=== PATIENT | female | born 1960 | race Caucasian/White ===

== ENCOUNTER 2017-07-06 06:06 | Day surgery (SDC) | payer OTHER ==
[2017-07-05 09:37] VITALS: BMI 30.1
[~2017-07-06 06:06] MED LIST: BETAMET ACET/BETAMET NA PH 30 MG/5 ML VIAL IJ ONE; BUPIVACAINE HCL/PF 0.25% (2.5MG/ML) 10 ML VIAL IJ ONE; IOHEXOL 180 MG/1 ML ML IJ ONE
[2017-07-06] MEDS ORDERED: BETAMET ACET/BETAMET NA PH 30 MG/5 ML VIAL ONE (07:39)
[2017-07-06] MEDS ORDERED: BUPIVACAINE HCL/PF 0.25% (2.5MG/ML) 10 ML VIAL ONE (07:40)
[2017-07-06] MEDS ORDERED: LIDOCAINE HCL 1%, 10 MG/ML (20ML VIAL) ONE (07:40)
[2017-07-06] MEDS ORDERED: PROPOFOL 20 ML ONE (08:01)
[2017-07-06] MEDS ORDERED: MIDAZOLAM HCL 2 MG/2 ML SINGLE DOSE VIAL ONE (08:01)
[2017-07-06] MEDS ORDERED: LIDOCAINE HCL 1%, 10 MG/ML (20ML VIAL) INF ONE ×2 (09:03)
[2017-07-06] MEDS ORDERED: IOHEXOL 180 MG/1 ML ML IJ ONE (09:08)
[2017-07-06] MEDS ORDERED: BUPIVACAINE HCL/PF 0.25% (2.5MG/ML) 10 ML VIAL IJ ONE (09:08)
[2017-07-06] MEDS ORDERED: BETAMET ACET/BETAMET NA PH 30 MG/5 ML VIAL IJ ONE (09:08)
[2017-07-06] MEDS ORDERED: ceFAZolin SODIUM 1 GM VIAL ONE (10:28)
[2017-07-06] MEDS ORDERED: oxyCODONE HCL 5 MG TABLET ONE ×2 (10:29→10:52)
[2017-07-06] MEDS ORDERED: ACETAMINOPHEN 325 MG TABLET (FP) ONE ×2 (10:30→10:52)
[2017-07-06 12:25] VITALS: TEMP 97.8
[2017-07-06 13:04] VITALS: BP 130/70; PULSE 77
--- NOTE | 2017-07-06 14:27 | PROC ---
Procedure Note Procedure: Date of service: 07/06/2017 Preoperative Diagnosis: Low back pain and lumbar radiculopathy on right, s/p Back surgery Postoperative Diagnosis: Same Procedure Performed: Lumbar Epidural Steroid Injection (LESI) on Right L5-S1 with dye under Fluoroscopy Anesthesia: Local / MAC Anesthesiologist: Procedure: I discussed with the patient in detail about the risks, benefits, and alternatives to treatment not only limited to infection, headache, numbness , weakness, and injury to nerves, blood vessels and muscles. The patient understood, agreed and signed the written consent. The patient was placed in the prone position with the head, abdomen and legs supported with the pillows. The lumbosacral area was prepped and draped with Betadine times three in a sterile fashion. Lumbar vertebrae were identified under the C-arm. At L5-S1 level on the right side, 3 ml of 1 % Lidocaine was infiltrated into the skin and subcutaneous tissue. A 3 inch, #20 gauge Tuohy needle was advanced to the epidural space with loss of resistance technique under fluoroscopic guidance. Aspiration was negative for cerebrospinal fluid and blood. 2ml of Omnipaque ( radio-opaque dye) was injected to confirm the tip of the needle into epidural space and spread of dye. There was no CSF or vascular spread. The spread of dye was noted cranially and caudally on epidurogram. Aspiration was done again which was negative. A solution of 2.5 ml of Celestone and 2.5 ml of 0.25% Marcaine and a total of 5 ml was injected slowly. While Tuohy needle was withdrawn 2.0 ml of 1 % Lidocaine was infiltrated. Bleeding was checked. Betadine was wiped off. A sterile bandage was placed. The patient tolerated the procedure well. There were no immediate complications. The patient was transferred to the recovery room. The patient was observed for some time and discharged as per ASU criteria. The patient was told to apply ice at the injection site. Follow up appointment was given and also call my office at . If there is any problem, call my office or report to Emergency Room. Note: Initially, Caudal epidural with Touhey ( Epimed set was used ) was tried and failed then Interlaminar approach done. Braxton Dow M.D.
== END 2017-07-06 12:00 | disposition home or self-care (01) ==
LOC: JASU-SURG 06:06
PROVIDERS: ATTEND Physical Medicine & Rehabilitation
PROC: 3E0R33Z Introduction of Anti-inflammatory into Spinal Canal, Percutaneous Approach (ICD-10-PCS; 2017-07-06)
PROC: B01BYZZ Fluoroscopy of Spinal Cord using Other Contrast (ICD-10-PCS; 2017-07-06)
PROC: 3E0R3BZ Introduction of Anesthetic Agent into Spinal Canal, Percutaneous Approach (ICD-10-PCS; principal; 2017-07-06 10:30)
DX: M54.16 Radiculopathy, lumbar region (principal); M54.5 Low back pain
CPT/HCPCS: 76000-TC

== ENCOUNTER 2018-04-20 07:46 | Emergency (ER) | payer OTHER ==
[2018-04-20 07:55] VITALS: BP 123/75; PULSE 84; TEMP 98.2; BMI 29.2
[2018-04-20] MEDS ORDERED: diphenhydrAMINE HCL 25 MG CAPSULE (FP) PO ONE ×2 (09:05→09:08)
--- NOTE | 2018-04-20 09:15 | PDOC ---
History of Present Illness - General Chief Complaint: Pain, Acute Stated Complaint: Right Knee pain, sx in Feb, 2018 Time Seen by Provider: 04/20/18 08:23 History Source: Patient, Family Exam Limitations: Language Barrier - History of Present Illness Initial Comments: 04/20/18 09:04 Patient states postop knee replacement on the right knee February 18 by physician at [facility]. Since that time has never had relief of pain , and now is itching profusely. Continue swelling. States appointment with him is not until May but reports is very unhappy with his care and does not wish to see him again. Patient denies fever, drainage from the site. Is using ibuprofen and Tylenol with minimal resolved. Severity: reports: moderate Pain Location: reports: lower extremity (right knee ) Associated Symptoms (Fall): denies symptoms Past History - Past Medical History Allergies/Adverse Reactions: Allergies Allergy/AdvReac Type Severity Reaction Status Date / Time sulfamethoxazole Allergy Mild Itching Verified 04/20/18 07:55 [From Bactrim] trimethoprim [From Bactrim] Allergy Mild Itching Verified 04/20/18 07:55 Home Medications: Ambulatory Orders Fluticasone/Salmeterol [Advair Hfa 115-21 Mcg Inhaler] 1 inh PO BID #1 inhaler 04/19/15 Aspirin Coated [Ecotrin -] 81 mg PO DAILY 07/05/17 Diphenhydramine HCl [Benadryl -] 25 mg PO Q8H PRN #21 capsule 04/20/18 Naproxen [Naprosyn -] 500 mg PO BID #30 tablet 04/20/18 Anemia: No Asthma: Yes Cancer: No Cardiac Disorders: No CVA: No COPD: No CHF: No Dementia: No Diabetes: Yes (NIDDM) GI Disorders: Yes (ACID REFLUX) Disorders: No HTN: Yes Hypercholesterolemia: No Liver Disease: No Seizures: No Thyroid Disease: No - Surgical History Abdominal Surgery: Yes (HYSTERECTOMY) Appendectomy: No Cardiac Surgery: No Cholecystectomy: No Lung Surgery: No Neurologic Surgery: No Orthopedic Surgery: Yes (LAMINECTOMY, LT KNEE SURGERY FROM TORN MENISCUS) - Suicide/Smoking/Psychosocial Hx Smoking History: Never smoked Have you smoked in the past 12 months: No If you are a former smoker, when did you quit?: 40 Information on smoking cessation initiated: No Hx Alcohol Use: No Drug/Substance Use Hx: No Substance Use Type: None Review of Systems - Review of Systems Able to Perform ROS?: Yes Is the patient limited Grenadian proficient: Yes Constitutional: Yes: Symptoms Reported, See HPI, Chills HEENTM: Yes: See HPI. No: Symptoms Reported Musculoskeletal: Yes: Symptoms Reported, See HPI, Joint Pain, Joint Swelling, Joint Stiffness (right knee ) All Other Systems: Reviewed and Negative *Physical Exam - Vital Signs Last Vital Signs Temp Pulse Resp BP Pulse Ox 98.2 F 84 18 123/75 98 04/20/18 07:53 04/20/18 07:53 04/20/18 07:53 04/20/18 07:53 04/20/18 07:53 - Physical Exam General Appearance: Yes: Nourished, Appropriately Dressed, Apparent Distress, Moderate Distress HEENT: positive: KELLY, Normal ENT Inspection, TMs Normal, Pharynx Normal Neck: positive: Supple. negative: Tender Respiratory/Chest: positive: Lungs Clear Extremity: positive: Normal Capillary Refill, Swelling (with ROM ~ 50% with well approximated suture line however patient has maculopapular rash to the lateral aspect of right knee and suture line that is pruritic in nature.). 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, Fully Oriented, Alert, Normal Mood/ Affect, Normal Response, Motor Strength 5/5 *DC/Admit/Observation/Transfer Diagnosis at time of Disposition: Post-op pain Allergic reaction Qualifiers: Encounter type: initial encounter Qualified Code(s): T78.40XA - Allergy, unspecified, initial encounter - Discharge Dispostion Disposition: HOME Condition at time of disposition: Stable Decision to Admit order: No - Referrals Referrals: Cassandra Campbell [Primary Care Provider] - Eric Harper MD [Staff Physician] - - Patient Instructions Printed Discharge Instructions: DI for Knee Pain Additional Instructions: Rest, ice to area on and off for 15 minutes 4-6 times a day Avoid heavy lifting or exercise until pain and swelling is resolved or until further directed Keep area highly elevated to reduce swelling Use splints/Hardeep wrap as directed Followup with orthopedist in one to 2 days if not improving, if significantly improved may wait one week for followup with orthopedist May use Naprosyn 1500 milligrams tablet every 12 hours as needed for pain - Post Discharge Activity Forms/Work/School Notes: Back to Work
== END 2018-04-20 09:22 | disposition home or self-care (01) ==
LOC: JERFT 07:46
DX: G89.18 Other acute postprocedural pain (principal); T78.40XA Allergy, unspecified, initial encounter; Z87.891 Personal history of nicotine dependence; I10 Essential (primary) hypertension; K21.9 Gastro-esophageal reflux disease without esophagitis
CPT/HCPCS: 99281-25

== ENCOUNTER 2018-08-02 07:19 | Day surgery (SDC) | payer OTHER ==
[2018-07-29 15:41] VITALS: BMI 28.3
[~2018-08-02 07:19] MED LIST changes: +LIDOCAINE HCL 1%, 10 MG/ML (50 mL VIAL) IJ ONE
[2018-08-02] MEDS ORDERED: BUPIVACAINE HCL/PF 0.25% (2.5MG/ML) 10 ML VIAL ONE (08:00)
[2018-08-02] MEDS ORDERED: LIDOCAINE HCL 1%, 10 MG/ML (20ML VIAL) ONE (08:00)
[2018-08-02] MEDS ORDERED: BETAMET ACET/BETAMET NA PH 30 MG/5 ML VIAL ONE (08:00)
[2018-08-02] MEDS ORDERED: PROPOFOL 20 ML ONE (09:17)
[2018-08-02] MEDS ORDERED: IOHEXOL 180 MG/1 ML ML IJ ONE (09:39)
[2018-08-02] MEDS ORDERED: LIDOCAINE HCL 1%, 10 MG/ML (50 mL VIAL) IJ ONE (09:39)
[2018-08-02] MEDS ORDERED: BETAMET ACET/BETAMET NA PH 30 MG/5 ML VIAL IJ ONE (09:39)
[2018-08-02] MEDS ORDERED: BUPIVACAINE HCL/PF 0.25% (2.5MG/ML) 10 ML VIAL IJ ONE (09:39)
[2018-08-02 12:05] VITALS: BP 114/69; PULSE 74; TEMP 97.6
== END 2018-08-02 12:05 | disposition home or self-care (01) ==
LOC: JASU-SURG 07:19
PROVIDERS: ATTEND Physical Medicine & Rehabilitation
PROC: 3E0T33Z Introduction of Anti-inflammatory into Peripheral Nerves and Plexi, Percutaneous Approach (ICD-10-PCS; 2018-08-02)
PROC: BR16YZZ Fluoroscopy of Lumbar Facet Joint(s) using Other Contrast (ICD-10-PCS; 2018-08-02)
PROC: 3E0R3BZ Introduction of Anesthetic Agent into Spinal Canal, Percutaneous Approach (ICD-10-PCS; 2018-08-02)
PROC: 3E0R33Z Introduction of Anti-inflammatory into Spinal Canal, Percutaneous Approach (ICD-10-PCS; 2018-08-02)
PROC: 3E0T3BZ Introduction of Anesthetic Agent into Peripheral Nerves and Plexi, Percutaneous Approach (ICD-10-PCS; principal; 2018-08-02 09:30)
DX: M46.86 Other specified inflammatory spondylopathies, lumbar region (principal); M53.3 Sacrococcygeal disorders, not elsewhere classified; M54.5 Low back pain; I10 Essential (primary) hypertension; E11.9 Type 2 diabetes mellitus without complications; Z79.84 Long term (current) use of oral hypoglycemic drugs
CPT/HCPCS: 82962

== ENCOUNTER 2018-09-16 09:38 | Day surgery (SDC) | payer OTHER ==
[2018-09-15 15:21] VITALS: BMI 29.2
[2018-09-16] MEDS ORDERED: PROPOFOL 20 ML ONE (12:21)
[2018-09-16] MEDS ORDERED: MIDAZOLAM HCL 2 MG/2 ML SINGLE DOSE VIAL ONE (12:21)
[2018-09-16] MEDS ORDERED: ONDANSETRON 4 MG/2 ML VIAL IVPUSH PRN (12:32)
[2018-09-16] MEDS ORDERED: oxyCODONE HCL 5 MG TABLET PO PRN (12:32)
[2018-09-16] MEDS ORDERED: ceFAZolin SODIUM 1 GM VIAL IVPB ONE (12:40)
[2018-09-16] MEDS ORDERED: ACETAMINOPHEN 325 MG TABLET (FP) PO PRN (12:41)
[2018-09-16] MEDS ORDERED: LACTATED RINGERS SOLUTION 1,000 ML IV SCH (12:45)
--- NOTE | 2018-09-16 13:22 | HP ---
DATE OF ADMISSION: 09/16/2018 HISTORY OF PRESENT ILLNESS: Patient is a 58-year-old female with history of urinary frequency, urgency, nocturia x3, and persistent microscopic hematuria. She has undergone back and knee surgery. She also does have history of diabetes, high blood pressure, COPD, and dyslipidemia. SOCIAL HISTORY: The patient denies ethanolism or tobacco. ALLERGIES: She is allergic to BACTRIM. 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 MEDICATIONS: She is on multiple medications including lisinopril, prednisone, aspirin, metformin, glyburide, Ambien, Ventolin, Symbicort, a PPI, and a statin. DIAGNOSTIC DATA: Her urine FISH was atypical. Her urinalysis reveals a moderate amount of red blood cells with no WBCs. Nitrate negative. An ultrasound of the kidneys reveals normal upper tract. Urinalysis was negative for glucose, trace ketones, specific gravity 1.030. Blood moderate pH 5.5. PHYSICAL EXAMINATION: General: Revealed a well-developed adult female in no apparent distress. Abdomen: Soft. There is no CVA tenderness. Lungs: Clear to auscultation and percussion. Heart: Regular rhythm. Pelvic: The bladder was not distended. Exam revealed atrophic vaginitis. No discharge and no masses. IMPRESSION AT PRESENT: A 58-year-old female with persistent microscopic hematuria. She will undergo cystoscopy, possible biopsy. ADEBAYO MUHAMMAD M.D. [id number]
--- NOTE | 2018-09-16 13:26 | OP ---
Operative Note - Note: Operative Date: 09/16/18 Pre-Operative Diagnosis: persistent microhematuria tashi, rec uti Operation: cysto, dilation, bladder bx. and fulgeration Findings: urethral stenosis, hemorrhagic cystitis Post-Operative Diagnosis: Same as Pre-op Surgeon: Marilee Rogers Anesthesia: General Specimens Removed: urine for c&s and cytology, bladder mucosa Estimated Blood Loss (mls): 0 Drains & Tubes with Location: 18f 10cc arias Drains, Volume Out (mls): 0 Blood Volume Replaced (mls): 0 Fluid Volume Replaced (mls): 0 Operative Report Dictated: Yes
[2018-09-16] MEDS ORDERED: KETOROLAC TROMETHAMINE 30 MG/1 ML VIAL ONE (13:56)
[2018-09-16] MEDS ORDERED: LORazepam 2 MG/ML SDV VIAL ONE (13:57)
[2018-09-16] MEDS ORDERED: ACETAMINOPHEN INJECTION 100 ML IVPB ONE (13:57)
[2018-09-16] MEDS ORDERED: LORazepam 2 MG/ML SDV VIAL IVPUSH ONE (13:59)
[2018-09-16] MEDS ORDERED: KETOROLAC TROMETHAMINE 30 MG/1 ML VIAL IVPUSH ONE (13:59)
[2018-09-16] MEDS ORDERED: ACETAMINOPHEN 1000 MG/100 ML VIAL (NON FORMULARY) IVPB ONE (14:02)
[2018-09-16 15:57] VITALS: TEMP 98
[2018-09-16 16:49] VITALS: BP 130/72; PULSE 76
--- NOTE | 2018-09-16 17:17 | OP ---
DATE OF OPERATION: 09/16/2018 PREOPERATIVE DIAGNOSIS: Micturition disorder, urinary incontinence, recurrent urinary tract infections, and persistent microscopic hematuria. POSTOPERATIVE DIAGNOSIS: Urethral caruncle meatal stenosis, grade 2 cystorectocele, atrophic vaginitis, hemorrhagic cystitis. OPERATIVE PROCEDURE: Cystourethroscopy, urethral dilation, bladder biopsy, and fulguration. ANESTHESIA: General. DESCRIPTION OF PROCEDURE: Under above-stated anesthesia, the patient was prepped and draped in the usual sterile manner. She was placed in the dorsal lithotomy position. Inspection of the external genitalia revealed a grade 2 cystorectocele. The meatus appeared to be dried and scarred with a prolapsed posterior urethral mucosa individual of a urethral caruncle. The scope was introduced. Urine was collected for cytology and culture and sensitivity. Inspection of the bladder revealed a generalized hyperemia. There were areas of punctate hemorrhages in the right lateral wall and trigone area. Therefore, biopsies were taken of the right lateral wall as well as the trigone. A Bugbee was introduced and hemostasis was secured with electrocautery. No active bleeding was noted. The bladder was emptied. The scope was removed. An 18-Filipino Galloway was inserted. This was connected to a leg bag. The patient tolerated the procedure well. She returned to the recovery room in good condition. Karine [id number]
--- NOTE | 2018-09-20 16:13 | PATH ---
Cytology Non-Gynecological Report Patient Name: ROBEL DOMINGO [facility] [place]. Rec. #: [id number] /Age/Gender: 1960 (Age: 58) / F Account: [id number] Location: [facility] Taken: 09/16/2018 Received: 09/16/2018 Reported: 09/20/2018 Physicians: Marilee Rogers M.D. Specimen(s) Received URINE VOIDED Clinical History Hematuria Final Diagnosis URINE FOR CYTOLOGY: SATISFACTORY FOR EVALUATION. NEGATIVE FOR HIGH GRADE UROTHELIAL CARCINOMA. FEW BENIGN UROTHELIAL CELLS PRESENT. Also see concurrent pathology report [id number]. Electronically Signed Tiffanie Steward M.D. Gross Description Approximately 40cc of yellow fluid received fresh. One sldie prepared.
--- NOTE | 2018-09-20 16:21 | PATH ---
Surgical Pathology Report Patient Name: ROBEL DOMINGO [facility]. Rec. #: [id number] /Age/Gender: 1960 (Age: 58) / F Account: [id number] Location: [facility] SUR[facility] Taken: 09/16/2018 Received: 09/19/2018 Reported: 09/20/2018 Physicians: Marilee Rogers M.D. Specimen(s) Received A: BLADDER BIOPSY B: BLADDER NECK BIOPSY Clinical History Interstitial cystitis, hematuria Final Diagnosis A. BLADDER BIOPSY: UROTHELIAL MUCOSA WITH MILD NONSPECIFIC CHRONIC INFLAMMATION. PORTION OF MUSCULARIS PROPRIA PRESENT, UNREMARKABLE. NEGATIVE FOR CARCINOMA. B. BLADDER NECK BIOPSY: UROTHELIAL MUCOSA WITH MILD NONSPECIFIC CHRONIC INFLAMMATION. NEGATIVE FOR CARCINOMA. Electronically Signed Tiffanie Steward M.D. Gross Description A. Received in formalin labeled "bladder biopsy," are 2 huizar soft tissue fragments measuring 0.3 and 0.5 cm in greatest dimension. The specimens are submitted in toto in one cassette. B. Received in formalin labeled "bladder neck biopsy," is a 0.3 cm greatest dimension huizar portion of soft tissue. The specimen is submitted in toto in one cassette. DL/09/19/2018 saudi09/19/2018
== END 2018-09-16 16:40 | disposition home or self-care (01) ==
LOC: JASU-SURG 09:38
PROVIDERS: ATTEND Urology
PROC: 0TBB8ZX Excision of Bladder, Via Natural or Artificial Opening Endoscopic, Diagnostic (ICD-10-PCS; principal; 2018-09-16 11:30)
DX: N30.81 Other cystitis with hematuria (principal); N36.2 Urethral caruncle; N81.10 Cystocele, unspecified; N81.6 Rectocele; N95.2 Postmenopausal atrophic vaginitis; N32.89 Other specified disorders of bladder
CPT/HCPCS: 82962; 87086; 88108; 88305-TC; 94760; J0131

== ENCOUNTER 2018-10-25 08:51 | Day surgery (SDC) | payer OTHER ==
[2018-10-24 15:26] VITALS: BMI 32.7
[2018-10-25] MEDS ORDERED: oxyCODONE HCL 5 MG TABLET PO PRN ×2 (10:12)
[2018-10-25] MEDS ORDERED: PROPOFOL 20 ML ONE (11:32)
[2018-10-25] MEDS ORDERED: LIDOCAINE HCL 1%, 10 MG/ML (20ML VIAL) INF ONE (11:39)
[2018-10-25] MEDS ORDERED: IOHEXOL 180 MG/1 ML ML IJ ONE (11:40)
[2018-10-25] MEDS ORDERED: BUPIVACAINE HCL/PF 0.25% (2.5MG/ML) 10 ML VIAL IJ ONE (11:43)
[2018-10-25] MEDS ORDERED: BETAMET ACET/BETAMET NA PH 30 MG/5 ML VIAL IM ONE (11:43)
[2018-10-25] MEDS ORDERED: KETOROLAC TROMETHAMINE 30 MG/1 ML VIAL ONE (11:56)
[2018-10-25 12:53] VITALS: BP 126/62; PULSE 68; TEMP 98
[2018-10-25] MEDS ORDERED: KETOROLAC TROMETHAMINE 30 MG/1 ML VIAL IVPUSH ONE (13:30)
== END 2018-10-25 13:55 | disposition home or self-care (01) ==
LOC: JASU-SURG 08:51
PROVIDERS: ATTEND Physical Medicine & Rehabilitation
PROC: 3E0R33Z Introduction of Anti-inflammatory into Spinal Canal, Percutaneous Approach (ICD-10-PCS; 2018-10-25)
PROC: 3E0R3BZ Introduction of Anesthetic Agent into Spinal Canal, Percutaneous Approach (ICD-10-PCS; principal; 2018-10-25 11:00)
DX: M54.16 Radiculopathy, lumbar region (principal); M54.5 Low back pain
CPT/HCPCS: 76000-TC-FY; 82962; 94760

== ENCOUNTER 2019-05-10 12:08 | Emergency (ER) | payer OTHER ==
[2019-05-10 12:17] VITALS: TEMP 98.1; BMI 32.0
--- NOTE | 2019-05-10 12:56 | PDOC ---
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 Pt was recently discharged from [facility] 04/24 for asthma exacerbation and has been on 40 mg PO prednisone (pt has been taking 20 mg PO, and not taking her albuterol MDI as directed). Pt states she has not felt better since her discharge on 04/24, but that her breathing was worse today. Pt denies any fevers/chills, headache, vision changes, syncope, chest pain, palpitations, cough, nausea/vomiting, abdominal pain, urinary symptoms, diarrhea /constipation, or leg swelling. Allergies: NKDA Pulm: Dr. Colon Social: Pt denies any cigarette, alcohol, or drug use. Pt denies any recent travel or sick contacts. Surgical: no relevant history. Family: no relevant history. 05/10/19 17:11 Past History - Travel Traveled outside of the country in the last 30 days: No Close contact w/someone who was outside of country & ill: No - Past Medical History Allergies/Adverse Reactions: Allergies Allergy/AdvReac Type Severity Reaction Status Date / Time sulfamethoxazole Allergy Mild Itching Verified 05/10/19 12:17 [From Bactrim] trimethoprim [From Bactrim] Allergy Mild Itching Verified 05/10/19 12:17 cauliflower Allergy Verified 05/10/19 12:17 Home Medications: Ambulatory Orders Aspirin Coated [Ecotrin -] 81 mg PO DAILY 07/05/17 Metformin HCl [Glucophage] 500 mg PO BID 08/02/18 Albuterol Sulfate Inhaler - [Ventolin Hfa Inhaler -] 1 - 2 inh PO QID 09/16/18 Glyburide 5 mg PO DAILY 09/16/18 Ibuprofen 800 mg PO PRN 09/16/18 Lisinopril [Zestril] 2.5 mg PO DAILY 09/16/18 Pantoprazole Sodium 40 mg PO DAILY 09/16/18 Zolpidem Tartrate 10 mg PO HS 09/16/18 predniSONE [Deltasone -] 40 mg PO UTDICT 8 Days #10 tablet 05/10/19 Anemia: No Asthma: Yes ("1 month ago"-went to ER,admitted for 3 days) Cancer: No Cardiac Disorders: No CVA: No COPD: No CHF: No Dementia: No Diabetes: Yes (NIDDM) GI Disorders: Yes (ACID REFLUX) Disorders: No HTN: Yes Hypercholesterolemia: No Liver Disease: No Seizures: No Thyroid Disease: No - Surgical History Abdominal Surgery: No Appendectomy: No Cardiac Surgery: No Cholecystectomy: No Lung Surgery: No Neurologic Surgery: No Orthopedic Surgery: Yes (LAMINECTOMY, LT KNEE SURGERY FROM TORN MENISCUS) - Psycho Social/Smoking Cessation Hx Smoking History: Never smoked Have you smoked in the past 12 months: No If you are a former smoker, when did you quit?: 40 Information on smoking cessation initiated: No Hx Alcohol Use: No Drug/Substance Use Hx: No Substance Use Type: None Hx Substance Use Treatment: No Respiratory Specific PMHX - Complaint Specific PMHX Hx Airway Support: No Hx Intubation: No Hx Asthma: Yes Hx Smoking Exposure: No Hx Vaping: No Hx Allergic Rhinitis: No Hx Exposure to Respiratory Irritants: No Hx Bronchitis: Yes Hx Pneumonia: No Hx Pulmonary Embolus: No Hx TB (Tuberculosis): No Review of Systems - Review of Systems Able to Perform ROS?: Yes (poor historian) Is the patient limited Armenian proficient: Yes Constitutional: Yes: Weight Stable. No: Chills, Fever, Loss of Appetite, Malaise, Weakness HEENTM: No: Recent change in vision, Nose Congestion, Throat Pain, Throat Swelling, Difficulty Swallowing Respiratory: Yes: Shortness of Breath, SOB with Exertion, SOB at Rest. No: Cough, Orthopnea, Wheezing, Productive cough, Hemoptysis Cardiac (ROS): Yes: Chest Tightness. No: Chest Pain, Edema, Irregular Heart Rate, Lightheadedness, Palpitations, Syncope ABD/GI: No: Constipated, Diarrhea, Nausea, Poor Appetite, Poor Fluid Intake, Vomiting : No: Burning, Dysuria, Frequency, Flank Pain, Hematuria, Pain, Urgency Musculoskeletal: No: Back Pain, Muscle Weakness Integumentary: No: Rash Neurological: No: Headache, Numbness, Weakness, Unsteady Gait, Dizziness Psychiatric: No: Sleep Pattern Change, Change in Appetite Endocrine: No: Increased Urine, Change in Weight Hematologic/Lymphatic: No: Anemia, Blood Clots, Easy Bleeding, Easy Bruising All Other Systems: Reviewed and Negative *Physical Exam - Vital Signs Last Vital Signs Temp Pulse Resp BP Pulse Ox 98.1 F 99 H 19 117/69 96 05/10/19 12:14 05/10/19 12:14 05/10/19 12:14 05/10/19 12:14 05/10/19 12:14 - Physical Exam Comments: Vitals stable, pt afebrile, O2 sat 100% on RA on my exam. Pt in NAD, obese body habitus. Speaking in full sentences and eating a bag of chips when I entered the room. Pt alert and oriented x3. account specialist generally intact, muscular strength and sensation intact. No midline spinal tenderness, step-offs, or crepitus. Head normocephalic, atraumatic. Eyes PERRLA, EOMI. Oropharynx without erythema or exudates, no LAD b/l. No nasal congestion. Hearing intact. Clear heart sounds, S1/S2, no JVD, b/l pedal edema, or heart murmur. Clear lung sounds, with mild end-expiratory wheezing. No abdominal or CVA tenderness to palpation, no rebound, no guarding. Abdomen soft, non-distended, and with normoactive bowel sounds. Skin without jaundice or rash. 05/10/19 17:17 ED Treatment Course - LABORATORY CBC & Chemistry Diagram: 05/10/19 13:22 05/10/19 13:21 Medical Decision Making - Medical Decision Making Pt was seen at bedside, also will be seen by attending Dr. Nickerson. Pt presenting with SOB from baseline, despite being on PO steroids. Discussed proper usage of home asthma medications with the patient. Will evaluate for asthma exacerbation vs overlying pneumonia vs ACS. Provided duoneb x3, 1 mg Mg, additional 20 mg PO prednisone for improvement of dyspnea and wheezing. Will continue to reassess pt and monitor for symptomatic improvement. ECG: Sinus tachycardia, atrial enlargement (Hr 103, CA 128, QRS 76, QTc 442). No TWIs or significant ST segment changes. No prior ECG for comparison. 05/10/19 17:19 CBC, CMP, Mg WNL Trop <.02 Chest x-ray with no acute pathology/consolidation Pt improved with interventions, ambulatory and speaking without SOB. No further wheezing auscultated. Spoke with Dr. Colon, who agrees with plan for d/c to home if clinically improved. Pts Peak Flow today was 275, he stated was consistent with pts prior. Provided peak flow to go home with. Increased steroid taper to 40 mg PO and decreasing by 10 mg every 3rd day. 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 Strict return precautions provided with pt understanding. 05/10/19 17:22 Discharge - Discharge Information Problems reviewed: Yes Clinical Impression/Diagnosis: Asthma Qualifiers: Asthma severity: moderate Asthma persistence: persistent Asthma complication type: with acute exacerbation Qualified Code(s): J45.41 - Moderate persistent asthma with (acute) exacerbation Condition: Improved Disposition: HOME - Admission No - Additional Discharge Information Prescriptions: predniSONE [Deltasone -] 40 mg PO UTDICT 8 Days #10 tablet - Follow up/Referral Referrals: Mayo Colon MD [Primary Care Provider] - - Patient Discharge Instructions Patient Printed Discharge Instructions: DI for Asthma -- Adult Additional Instructions: You were seen in the ER today for shortness of breath. The results of your labs and imaging today were normal. Please follow-up with your primary care doctor and Dr. Colon on Wednesday to discuss your visit and make sure your symptoms have improved. Please return to the ER if you have any worsening pain, development of fevers or chills, loss of consciousness, inability to tolerate food or fluids, or any other concerns. I have sent medications to your pharmacy. We have increased the amount of your prednisone steroid. Please take these medications as prescribed. Please take your inhalers as we discussed. You can take 1-2 pumps of your albuterol inhaler every 4 hours as needed. Your peak flow meter today was 275 -- please use this over the next couple of days to monitor your progress. - Post Discharge Activity
[2019-05-10] MEDS ORDERED: ALBUTEROL SO4 2.5/IPRATROPIUM 0.5 INH SOL 3 ML VIAL.NEB. NEB ONE (13:30)
[2019-05-10] MEDS ORDERED: MAGNESIUM 1GM/D5W - 1 GM/100 ML IVPB IVPB ONE (13:30)
[2019-05-10] MEDS: ALBUTEROL SO4 2.5/IPRATROPIUM 0.5 INH SOL 3 ML VIAL.NEB. NEB SCH ×3 (13:52→14:38)
[2019-05-10 13:55] LABS: VENOUS PC02 48.6 mmHg (38-52); VENOUS PH 7.39 (7.31-7.41)
[2019-05-10 13:59] LABS: VENOUS PO2 < 49 mmHg (28-48)
[2019-05-10 14:00] LABS: BASO % 0.7 % (0-2.0); EOS % 1.3 % (0-4.5); HEMATOCRIT 40.2 % (32.4-45.2); HEMOGLOBIN 13.2 GM/dL (10.7-15.3); LYMPH % 25.4 % (8-40); MCH 27.8 pg (25.7-33.7); MCHC 32.8 g/dl (32.0-36.0); MEAN CELL VOLUME 84.8 fl (80-96); MEAN PLT VOLUME 8.8 fl (7.5-11.1); MONO % 5.5 % (3.8-10.2); NEUT % 67.1 % (42.8-82.8); PLATELET COUNT 306 K/MM3 (134-434); RBC 4.74 M/mm3 (3.60-5.2); WHITE BLOOD COUNT 10.6 K/mm3 (4.0-10.0)
[2019-05-10 14:31] LABS: ALBUMIN 3.6 g/dl (3.4-5.0); BILIRUBIN,TOTAL 0.5 mg/dL (0.2-1); BLOOD UREA NITROGEN 11.7 mg/dL (7-18); CALCIUM 9.1 mg/dL (8.5-10.1); CREATININE 0.6 mg/dL (0.55-1.3); MAGNESIUM 2.1 mg/dL (1.8-2.4); POTASSIUM 4.5 mmol/L (3.5-5.1); TOT PROT 6.7 g/dl (6.4-8.2)
--- NOTE | 2019-05-10 14:54 | EKG ---
Test Reason : Blood Pressure : / mmHG Vent. Rate : 103 BPM Atrial Rate : 103 BPM P-R Int : 128 ms QRS Dur : 076 ms QT Int : 338 ms P-R-T Axes : 056 005 055 degrees QTc Int : 442 ms SINUS TACHYCARDIA POSSIBLE LEFT ATRIAL ENLARGEMENT BORDERLINE ECG NO PREVIOUS ECGS AVAILABLE Confirmed by RANULFO LAMA, DENILSON ([id number]) on 05/10/2019 2:54:27 PM Referred By: Confirmed By:DENILSON WINCHESTER MD
[2019-05-10 15:15] LABS: ARTERIAL BLD GAS O2 SATURATION 97.7 % (95-98); ARTERIAL BLOOD GAS BASE EXCESS -0.3 meq/l (-2-2); ARTERIAL BLOOD GAS PCO2 33.7 mmHg (35-45); ARTERIAL BLOOD GAS PO2 96.4 mmHg (80-100); ARTERIAL BLOOD GAS pH 7.45 (7.35-7.45); CARBOXYHEMOGLOBIN 1.3 % (0-2)
[2019-05-10 15:18] LABS: ALLENS TEST POSITIVE
[2019-05-10] MEDS ORDERED: predniSONE 20 MG TABLET (UD) PO ONE (15:46)
--- NOTE | 2019-05-10 15:48 | PDOC ---
Attending Attestation - Resident Resident Name: PerlitaMichelle - ED Attending Attestation I have performed the following: I have examined & evaluated the patient, The case was reviewed & discussed with the resident, I agree w/resident's findings & plan, Exceptions are as noted - HPI HPI: 05/10/19 15:42 59-year-old female history of diabetes asthma hypertension hyperlipidemia here today complaining of worsening shortness of breath. 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 Patient states she often needs her inhaler as often as every 20 minutes was not getting much relief. Denies any fevers or chills no chest pain no other current complaints. Transfer text - Physicial Exam PE: 05/10/19 15:43 Awake alert no acute distress on my exam the patient is lungs are clear post nebulizers no wheezing no crackles normal effort. Heart is regular tachycardia no murmurs rubs or gallops abdomen is soft and nontender extremities are warm well perfused no edema noted skin is warm and dry no rash patient is awake alert and oriented x3 - Medical Decision Making 05/10/19 15:49 59-year-old female history of hypertension diabetes hyperlipidemia asthma here with what appears to be asthma exacerbation already on steroids. Patient was given DuoNeb's here given additional dose of steroids per signout from Dr. Colon the patient was supposed to be taking 40 mg daily however the patient states she is taking a 20 mg tab and only taking it 1 tab once daily. Evaluated patient using her inhaler and it appears that she was using it incorrectly was educated in the proper way to use her inhaler pump. States that she also has a nebulizer machine at home was instructed that she should use it if she feels she is not getting relief from her pump. Peak flow monitor was obtained showing a peak flow of 275. Per Dr. Clark this is near her baseline overall the patient was offered admission would like to go home as tomorrow is a holiday was encouraged to return to the ED for repeat evaluation should she be requiring her inhaler more than every 4 hours has any worsening of symptoms or any concerns discharge with peak meter and told to use it as a guide while at home Heart Score/ECG Review #1 General ECG Interpretation: Sinus Rhythm, Normal Rate (103), Normal Intervals, No acute ischemic changes
[2019-05-10 16:10] VITALS: BP 120/58; PULSE 82
== END 2019-05-10 16:10 | disposition home or self-care (01) ==
LOC: JER 12:08
PROC: 3E0F7GC Introduction of Other Therapeutic Substance into Respiratory Tract, Via Natural or Artificial Opening (ICD-10-PCS; principal; 2019-05-10)
PROC: 3E033GC Introduction of Other Therapeutic Substance into Peripheral Vein, Percutaneous Approach (ICD-10-PCS; 2019-05-10)
DX: J45.41 Moderate persistent asthma with (acute) exacerbation (principal); Z88.8 Allergy status to other drugs, medicaments and biological substances; Z91.018 Allergy to other foods; Z87.891 Personal history of nicotine dependence; K21.9 Gastro-esophageal reflux disease without esophagitis; E11.9 Type 2 diabetes mellitus without complications; I10 Essential (primary) hypertension
CPT/HCPCS: 36415; 36600; 71045-TC-FY; 80053; 82375; 82803; 83050; 83735; 84484; 85025; 93005; 93010; 99284-25

== ENCOUNTER 2019-05-31 09:02 | Inpatient (IN) | payer OTHER ==
[2019-05-31 09:25] VITALS: BMI 31.5
[2019-05-31] MEDS ORDERED: methylPREDNISolone NA SUCC 125 MG/2 ML VIAL IVPB ONE (09:55)
[2019-05-31] MEDS ORDERED: ALBUTEROL SO4 2.5/IPRATROPIUM 0.5 INH SOL 3 ML VIAL.NEB. NEB ONE ×3 (09:55→16:16)
[2019-05-31] MEDS ORDERED: methylPREDNISolone NA SUCC 125 MG/2 ML VIAL ONE ×2 (09:56→16:16)
[2019-05-31 10:12] LABS: BASO % 0.6 % (0-2.0); EOS % 2.7 % (0-4.5); HEMATOCRIT 40.1 % (32.4-45.2); HEMOGLOBIN 13.2 GM/dL (10.7-15.3); LYMPH % 15.5 % (8-40); MCH 28.2 pg (25.7-33.7); MCHC 32.9 g/dl (32.0-36.0); MEAN CELL VOLUME 85.6 fl (80-96); MEAN PLT VOLUME 10.1 fl (7.5-11.1); MONO % 6.1 % (3.8-10.2); NEUT % 75.1 % (42.8-82.8); PLATELET COUNT 306 K/MM3 (134-434); RBC 4.68 M/mm3 (3.60-5.2); WHITE BLOOD COUNT 9.5 K/mm3 (4.0-10.0)
[2019-05-31 10:54] LABS: ALBUMIN 3.6 g/dl (3.4-5.0); BILIRUBIN,TOTAL 0.3 mg/dL (0.2-1); BLOOD UREA NITROGEN 16.1 mg/dL (7-18); CALCIUM 8.8 mg/dL (8.5-10.1); CREATININE 0.9 mg/dL (0.55-1.3); POTASSIUM 4.1 mmol/L (3.5-5.1); TOT PROT 7.1 g/dl (6.4-8.2)
--- NOTE | 2019-05-31 12:38 | PDOC ---
Documentation entered by Evelin Bowles SCRIBE, acting as scribe for Jennifer Alatorre MD. Jennifer Alatorre MD: This documentation has been prepared by the Jelena posadas Xhesika, SCRIBE, under my direction and personally reviewed by me in its entirety. I confirm that the documentation accurately reflects all work, treatment, procedures, and medical decision making performed by me. History of Present Illness - General Chief Complaint: Asthma Stated Complaint: ASTHMA ATTACK Time Seen by Provider: 05/31/19 09:24 History Source: Patient Exam Limitations: No Limitations - History of Present Illness Initial Comments: 05/31/19 09:57 The patient is a 59 year old female with with PMH of asthma, NIDDM, HTN, HLD, urethral stenosis and cystitis, who presents to the ED via EMS from her 2 months of asthma attacks, palpitations and SOB. Pt was recently discharged from [facility] 04/24 for asthma exacerbation. Patient has been on 40 mg PO prednisone (pt has been taking 20 mg PO, finished yesterday), breathing machine 5x a day, albuterol sulfate and ventolin. Patient notes yesterday she felt like she had a fever and sore throat. Pt notes she sleeps elevated and her SOB is aggravated even when walking around her house. Pt denies any chills, headache, vision changes, syncope, chest pain, cough, nausea/vomiting, abdominal pain, urinary symptoms, diarrhea/constipation, or leg swelling. Allergies: Sulfamethoxazol, trimethroprim, cauliflower Surgical hx: b/l lense implants, b/l knee replacements, back surgery, arm tumor resection Past History - Past Medical History Allergies/Adverse Reactions: Allergies Allergy/AdvReac Type Severity Reaction Status Date / Time sulfamethoxazole Allergy Mild Itching Verified 05/10/19 12:17 [From Bactrim] trimethoprim [From Bactrim] Allergy Mild Itching Verified 05/10/19 12:17 cauliflower Allergy Verified 05/10/19 12:17 Home Medications: Ambulatory Orders Aspirin Coated [Ecotrin -] 81 mg PO DAILY 07/05/17 Metformin HCl [Glucophage] 500 mg PO BID 08/02/18 Albuterol Sulfate Inhaler - [Ventolin Hfa Inhaler -] 1 - 2 inh PO QID 09/16/18 Glyburide 5 mg PO DAILY 09/16/18 Ibuprofen 800 mg PO PRN 09/16/18 Lisinopril [Zestril] 2.5 mg PO DAILY 09/16/18 Pantoprazole Sodium 40 mg PO DAILY 09/16/18 Zolpidem Tartrate 10 mg PO HS 09/16/18 predniSONE [Deltasone -] 40 mg PO UTDICT 8 Days #10 tablet 05/10/19 Albuterol Sulfate [Proair Respiclick] 90 mcg IH DAILY 05/31/19 Anemia: No Asthma: Yes Cancer: No Cardiac Disorders: No CVA: No COPD: No CHF: No Dementia: No Diabetes: Yes (NIDDM) GI Disorders: Yes (ACID REFLUX) Disorders: No HTN: Yes Hypercholesterolemia: No Liver Disease: No Seizures: No Thyroid Disease: No - Surgical History Abdominal Surgery: No Appendectomy: No Cardiac Surgery: No Cholecystectomy: No Lung Surgery: No Neurologic Surgery: No Orthopedic Surgery: Yes (LAMINECTOMY, LT KNEE SURGERY FROM TORN MENISCUS) - Immunization History Immunization Up to Date: Yes - Psycho Social/Smoking Cessation Hx Smoking History: Never smoked Have you smoked in the past 12 months: No If you are a former smoker, when did you quit?: 40 Information on smoking cessation initiated: No Hx Alcohol Use: No Drug/Substance Use Hx: No Substance Use Type: None Hx Substance Use Treatment: No Review of Systems - Review of Systems Able to Perform ROS?: Yes Comments:: GENERAL/CONSTITUTIONAL: No fever or chills. No weakness. HEAD, EYES, EARS, NOSE AND THROAT: No change in vision. No ear pain or discharge. CARDIOVASCULAR: No chest pain.+ shortness of breath.+ palpitations RESPIRATORY: No cough, wheezing, or hemoptysis. +asthma attack GASTROINTESTINAL: No nausea, vomiting, diarrhea or constipation. GENITOURINARY: No dysuria, frequency, or change in urination. MUSCULOSKELETAL: No joint or muscle swelling or pain. No neck or back pain. SKIN: No rash NEUROLOGIC: No headache, vertigo, loss of consciousness, or change in strength/ sensation. ENDOCRINE: No increased thirst. No abnormal weight change. HEMATOLOGIC/LYMPHATIC: No anemia, easy bleeding, or history of blood clots. ALLERGIC/IMMUNOLOGIC: No hives or skin allergy. *Physical Exam - Vital Signs Last Vital Signs Temp Pulse Resp BP Pulse Ox 97.5 F L 120 H 14 135/87 100 05/31/19 09:23 05/31/19 09:23 05/31/19 09:23 05/31/19 09:23 05/31/19 09:23 - Physical Exam GENERAL: The patient is in no acute distress. HEAD: Normal with no signs of trauma. EYES: PERRLA, EOMI, sclera anicteric, conjunctiva clear. ENT: Ears normal, nares patent, oropharynx clear without exudates. Moist mucous membranes. NECK: Normal range of motion, supple without lymphadenopathy, JVD, or masses. LUNGS: +expiratory wheezing. Breath sounds equal, clear to auscultation bilaterally. no crackles. HEART:Regular rate and rhythm, normal S1 and S2 without murmur, rub or gallop. ABDOMEN: Soft, nontender, normoactive bowel sounds. No guarding, no rebound. No masses palpable. EXTREMITIES: Normal range of motion, no edema. No clubbing or cyanosis. No erythema, or tenderness. NEUROLOGICAL: Cranial nerves II through XII grossly intact. Normal speech. No focal neurological deficits. MUSCULOSKELETAL: Back non-tender to palpation, no CVA tenderness SKIN: Warm, Dry, normal turgor, no rashes or lesions noted. ED Treatment Course - LABORATORY CBC & Chemistry Diagram: 06/01/19 08:03 06/01/19 08:03 - ADDITIONAL ORDERS Additional order review: Laboratory Results 05/31/19 05/31/19 09:36 09:36 Sodium 142 Potassium 4.1 Chloride 109 H Carbon Dioxide 25 Anion Gap 8 BUN 16.1 Creatinine 0.9 Est GFR (CKD-EPI)AfAm 80.55 Est GFR (CKD-EPI)NonAf 69.50 Random Glucose 223 H Calcium 8.8 Total Bilirubin 0.3 AST 22 ALT 28 Alkaline Phosphatase 110 Creatine Kinase 167 Creatine Kinase Index 0.7 CK-MB (CK-2) 1.2 Troponin I < 0.02 B-Natriuretic Peptide 13.0 Total Protein 7.1 Albumin 3.6 05/31/19 09:36 RBC 4.68 MCV 85.6 MCHC 32.9 RDW 15.0 MPV 10.1 D Neutrophils % 75.1 Lymphocytes % 15.5 D Monocytes % 6.1 Eosinophils % 2.7 D Basophils % 0.6 - RADIOLOGY Radiology Studies Ordered: Category Date Time Status CHEST CTA [CT] Stat CT Scan 05/31/19 09:55 Ordered CHEST X-RAY PORTABLE* [RAD] Stat Radiology 05/31/19 09:55 Completed - Medications Given in the ED: ED Medications Discontinued Medications Generic Name Dose Route Start Last Admin Trade Name Messi PRN Reason Stop Dose Admin Albuterol/Ipratropium 1 amp 05/31/19 09:55 05/31/19 10:01 Duoneb - NEB 05/31/19 09:56 1 amp ONCE ONE Administration Methylprednisolone Sodium Succinate 125 mg 05/31/19 09:55 05/31/19 10:01 Solu-Medrol - IVPB 05/31/19 09:56 125 mg ONCE ONE Administration Medical Decision Making - Medical Decision Making 05/31/19 11:46 59 yo F presenting with a complaint of shortness of breath PT has been short of breath for the past 2 months Decreased exercise tolerance Wheezing that has been persistent despite prednisone and nebs (pt estimates that when home, she is using nebs every 20 minutes) Fevers 2 days ago No nausea, vomiting, diarrhea DD: Asthma exacerbation, pneumonia, PE, pleural effusion Will do: LAbs EKG CXR CTA Re Assess Laboratory Tests 05/31/19 05/31/19 09:36 09:36 WBC 9.5 Hgb 13.2 Hct 40.1 Plt Count 306 BUN 16.1 Creatinine 0.9 05/31/19 11:46 CXR: no acute cardiopulmonary disease 05/31/19 11:47 05/31/19 12:36 05/31/19 14:04 CTA negative WIll admit as pt remains very dyspneic continues to have wheezing Will admit as pt has had maximal therapy as an outpatient including PO steroids , Inhaled bronchodilators, inhaled steroids and close Pulmonary follow up and continues to have difficulty with ambulation even around her home Pt has had no signs of infection to suggest pneumonia and CTA demonstrates no PE Pt has a persistent severe COPD exacerbation Discharge - Discharge Information Problems reviewed: Yes Clinical Impression/Diagnosis: Asthma Qualifiers: Asthma severity: moderate Asthma persistence: persistent Asthma complication type: unspecified Qualified Code(s): J45.40 - Moderate persistent asthma, uncomplicated Condition: Stable - Admission Yes - Follow up/Referral - Patient Discharge Instructions - Post Discharge Activity
--- NOTE | 2019-05-31 14:39 | HP ---
Admitting History and Physical - Primary Care Physician PCP: Sary Baxter - Admission Chief Complaint: SOB/wheezing x 1-2 months not relieved with MVI/Nebs/steroids History Source: Patient Limitations to Obtaining History: Language Barrier - Past Medical History Cardiovascular: Yes: HTN, Hyperlipdemia Pulmonary: Yes: Asthma Renal/: Yes: Other (urethral stenosis, cycstitis) Endocrine: Yes: Diabetes Mellitus - Past Surgical History Past Surgical History: Yes: Joint Replacement (BL TKR) Additional Past Surgical History: BL lens implants, back surgery, arm tumor resection - Smoking History Smoking history: Never smoked Have you smoked in the past 12 months: No If you are a former smoker, when did you quit?: 40 - Alcohol/Substance Use Hx Alcohol Use: No History of Substance Use: reports: None - Social History Usual Living Arrangement: Yes: Alone ADL: Independent History of Recent Travel: No Home Medications - Allergies Allergies/Adverse Reactions: Allergies Allergy/AdvReac Type Severity Reaction Status Date / Time sulfamethoxazole Allergy Mild Itching Verified 05/10/19 12:17 [From Bactrim] trimethoprim [From Bactrim] Allergy Mild Itching Verified 05/10/19 12:17 cauliflower Allergy Verified 05/10/19 12:17 - Home Medications Home Medications: Ambulatory Orders Aspirin Coated [Ecotrin -] 81 mg PO DAILY 07/05/17 Metformin HCl [Glucophage] 500 mg PO BID 08/02/18 Albuterol Sulfate Inhaler - [Ventolin Hfa Inhaler -] 1 - 2 inh PO QID 09/16/18 Glyburide 5 mg PO DAILY 09/16/18 Ibuprofen 800 mg PO PRN 09/16/18 Lisinopril [Zestril] 2.5 mg PO DAILY 09/16/18 Pantoprazole Sodium 40 mg PO DAILY 09/16/18 Zolpidem Tartrate 10 mg PO HS 09/16/18 predniSONE [Deltasone -] 40 mg PO UTDICT 8 Days #10 tablet 05/10/19 Albuterol Sulfate [Proair Respiclick] 90 mcg IH DAILY 05/31/19 Family Medical History Family History: Denies Review of Systems - Review of Systems Constitutional: reports: Chills (reported) Eyes: reports: No Symptoms HENT: reports: No Symptoms Neck: reports: No Symptoms Cardiovascular: reports: Shortness of Breath Respiratory: reports: Cough, SOB, SOB on Exertion, Wheezing Genitourinary: reports: No Symptoms Breasts: reports: No Symptoms Reported Musculoskeletal: reports: No Symptoms Integumentary: reports: No Symptoms Endocrine: reports: No Symptoms Hematology/Lymphatic: reports: No Symptoms Psychiatric: reports: No Symptoms Physical Examination Vital Signs: Vital Signs Temperature 97.5 F L 05/31/19 09:23 Pulse Rate 120 H 05/31/19 09:23 Respiratory Rate 14 05/31/19 09:23 Blood Pressure 135/87 05/31/19 09:23 O2 Sat by Pulse Oximetry (%) 100 05/31/19 09:23 Constitutional: Yes: Well Nourished, No Distress, Calm Eyes: Yes: WNL, Conjunctiva Clear, EOM Intact HENT: Yes: WNL, Atraumatic, Normocephalic Neck: Yes: WNL, Supple, Trachea Midline Cardiovascular: Yes: Regular Rate and Rhythm, Tachycardia Respiratory: Yes: Regular, Poor Air Entry, Wheezes Gastrointestinal: Yes: WNL, Normal Bowel Sounds ...Rectal Exam: Yes: Deferred Renal/: Yes: WNL Breast(s): Yes: WNL Musculoskeletal: Yes: WNL Extremities: Yes: WNL Edema: No Peripheral Pulses WNL: Yes Peripheral Pulses: Left Radial: 2+, Right Radial: 2+, Left Doralis Pedis: 2+, Right Dorsalis Pedis: 2+, Left Femoral: 2+, Right Femoral: 2+ Integumentary: Yes: WNL Neurological: Yes: WNL, Alert, Oriented ...Motor Strength: WNL Psychiatric: Yes: WNL Labs: CBC, BMP 05/31/19 09:36 05/31/19 09:36 Imaging - Results Chest X-ray: Image Reviewed Cat Scan: Report Reviewed (CTA: no PE noted) Problem List - Problems (1) HTN (hypertension) Assessment/Plan: c/w home lisinipril Code(s): I10 - ESSENTIAL (PRIMARY) HYPERTENSION (2) HLD (hyperlipidemia) Assessment/Plan: diet controlled Code(s): E78.5 - HYPERLIPIDEMIA, UNSPECIFIED (3) Diabetes Assessment/Plan: hold metformin/glyburide BGM AC/HS with novolog sliding scale diabetic diet Code(s): E11.9 - TYPE 2 DIABETES MELLITUS WITHOUT COMPLICATIONS (4) Cystitis Assessment/Plan: hx of, stable Code(s): N30.90 - CYSTITIS, UNSPECIFIED WITHOUT HEMATURIA (5) Urethral stenosis Assessment/Plan: hx of, stable Code(s): [id number] - (6) Prophylactic measure Assessment/Plan: FEN no additional IVF needed monitor electrolytes diabetic/low sodium diet DVT heparin sq Dispo admit to med surg full code discharge planning Code(s): Z29.9 - ENCOUNTER FOR PROPHYLACTIC MEASURES, UNSPECIFIED (7) Asthma exacerbation Assessment/Plan: solumedrol and nebs given in ED with minimal reief c/w solmedrol 60mg q6h duo nebds q6h standing no abx at this time, CXR without effusion/infiltartes, afebrile, WBC 9.5 pulmonary consultation requested Code(s): J45.901 - UNSPECIFIED ASTHMA WITH (ACUTE) EXACERBATION Visit type - Emergency Visit Emergency Visit: Yes ED Registration Date: 05/31/19 Care time: The patient presented to the Emergency Department on the above date and was hospitalized for further evaluation of their emergent condition. - New Patient This patient is new to me today: Yes Date on this admission: 05/31/19 - Critical Care Critical Care patient: No
--- NOTE | 2019-05-31 15:15 | EKG ---
Test Reason : Blood Pressure : / mmHG Vent. Rate : 097 BPM Atrial Rate : 097 BPM P-R Int : 128 ms QRS Dur : 070 ms QT Int : 330 ms P-R-T Axes : 036 -20 028 degrees QTc Int : 419 ms POOR DATA QUALITY, INTERPRETATION MAY BE ADVERSELY AFFECTED NORMAL SINUS RHYTHM MINIMAL VOLTAGE CRITERIA FOR LVH, MAY BE NORMAL VARIANT BORDERLINE ECG WHEN COMPARED WITH ECG OF 10-MAY-2019 12:12, NO SIGNIFICANT CHANGE WAS FOUND Confirmed by DENILSON WINCHESTER MD ([id number]) on 05/31/2019 3:14:32 PM Referred By: Confirmed By:DENILSON WINCHESTER MD
[2019-05-31] MEDS: INSULIN SLIDING SCALE (NOVOLOG) 1 VIAL SQ SCH ×2 (16:22→21:41)
[2019-05-31] MEDS: ALBUTEROL SO4 2.5/IPRATROPIUM 0.5 INH SOL 3 ML VIAL.NEB. NEB SCH ×2 (16:22→20:35)
[2019-05-31] MEDS: methylPREDNISolone NA SUCC 40 MG/1 ML VIAL IVPUSH SCH (17:31)
[2019-05-31] MEDS: ACETAMINOPHEN 325 MG TABLET (FP) PO PRN (19:58)
[2019-05-31] MEDS ORDERED: INSULIN (NOVOLOG) ASPART 100 UNITS/ML 10ML VIAL ONE (21:40)
[2019-05-31] MEDS: HEPARIN NA (PORCINE) 5,000 UNITS/ML 1ML VIAL SQ SCH (21:42)
[2019-05-31] MEDS ORDERED: ZOLPIDEM TARTRATE 5 MG TABLET PO PRN (22:00)
[2019-06-01] MEDS: methylPREDNISolone NA SUCC 40 MG/1 ML VIAL IVPUSH SCH ×5 (00:10→23:53)
[2019-06-01] MEDS: ACETAMINOPHEN 325 MG TABLET (FP) PO PRN (01:56)
[2019-06-01] MEDS ORDERED: ALBUTEROL SO4 0.083% IH SOL 2.5 MG/3 ML VIAL.NEB. NEB ONE (04:00)
[2019-06-01] MEDS: INSULIN SLIDING SCALE (NOVOLOG) 1 VIAL SQ SCH ×4 (06:05→21:48)
[2019-06-01] MEDS ORDERED: INSULIN (NOVOLOG) ASPART 100 UNITS/ML 10ML VIAL ONE ×3 (06:42→21:39)
[2019-06-01 08:36] LABS: BASO % 0.4 % (0-2.0); HEMATOCRIT 38.9 % (32.4-45.2); HEMOGLOBIN 12.7 GM/dL (10.7-15.3); LYMPH % 5.1 % (8-40); MCH 27.5 pg (25.7-33.7); MCHC 32.6 g/dl (32.0-36.0); MEAN CELL VOLUME 84.3 fl (80-96); MEAN PLT VOLUME 9.3 fl (7.5-11.1); MONO % 2.4 % (3.8-10.2); NEUT % 92.1 % (42.8-82.8); PLATELET COUNT 324 K/MM3 (134-434); RBC 4.61 M/mm3 (3.60-5.2); RDW 14.9 % (11.6-15.6); WHITE BLOOD COUNT 13.6 K/mm3 (4.0-10.0)
--- NOTE | 2019-06-01 08:58 | PN ---
Progress Note, Physician Chief Complaint: Continued wheezing, using supplemental O2. Tearful on exam that she is hospitalized - Current Medication List Current Medications: Active Medications Acetaminophen (Tylenol -) 650 mg PO Q6H PRN PRN Reason: PAIN LEVEL 1 - 3 Last Admin: 06/01/19 01:56 Dose: 650 mg Albuterol/Ipratropium (Duoneb -) 1 amp NEB RQID [facility] Last Admin: 05/31/19 20:35 Dose: 1 amp Aspirin (Ecotrin -) 81 mg PO DAILY [facility] Heparin Sodium (Porcine) (Heparin -) 5,000 unit SQ BID [facility] Last Admin: 05/31/19 21:42 Dose: 5,000 unit Insulin Aspart (Novolog Vial Sliding Scale -) 1 vial SQ ACHS [facility]; Protocol Last Admin: 06/01/19 06:05 Dose: 8 unit Lisinopril (Prinivil) 2.5 mg PO DAILY [facility] Methylprednisolone Sodium Succinate (Solu-Medrol -) 60 mg IVPUSH Q6H [facility] Last Admin: 06/01/19 05:48 Dose: 60 mg Pantoprazole Sodium (Protonix -) 40 mg PO DAILY [facility] Zolpidem Tartrate (Ambien -) 10 mg PO HS PRN PRN Reason: INSOMNIA - Objective Vital Signs: Vital Signs Temperature 97.5 F L 06/01/19 06:00 Pulse Rate 89 06/01/19 06:00 Respiratory Rate 20 06/01/19 06:00 Blood Pressure 130/99 06/01/19 06:00 O2 Sat by Pulse Oximetry (%) 97 05/31/19 22:00 Constitutional: Yes: Well Nourished, No Distress, Calm Eyes: Yes: WNL, Conjunctiva Clear HENT: Yes: WNL, Atraumatic, Normocephalic Neck: Yes: WNL, Supple, Trachea Midline Cardiovascular: Yes: WNL, Regular Rate and Rhythm Respiratory: Yes: Regular, Poor Air Entry, Wheezes Gastrointestinal: Yes: WNL, Normal Bowel Sounds ...Rectal Exam: Yes: Deferred Genitourinary: Yes: WNL Breast(s): Yes: WNL Musculoskeletal: Yes: WNL Extremities: Yes: WNL Edema: No Peripheral Pulses WNL: Yes Peripheral Pulses: Left Radial: 2+, Right Radial: 2+, Left Doralis Pedis: 2+, Right Dorsalis Pedis: 2+, Left Femoral: 2+, Right Femoral: 2+ Integumentary: Yes: WNL Neurological: Yes: WNL, Alert, Oriented ...Motor Strength: WNL Psychiatric: Yes: WNL Labs: CBC, BMP 06/01/19 08:03 - ....Imaging Chest X-ray: Image Reviewed X-ray: Report Reviewed Problem List - Problems (1) HTN (hypertension) Assessment/Plan: c/w home lisinipril Code(s): I10 - ESSENTIAL (PRIMARY) HYPERTENSION (2) HLD (hyperlipidemia) Assessment/Plan: diet controlled Code(s): E78.5 - HYPERLIPIDEMIA, UNSPECIFIED (3) Diabetes Assessment/Plan: hold metformin/glyburide BGM AC/HS with novolog sliding scale diabetic diet Code(s): E11.9 - TYPE 2 DIABETES MELLITUS WITHOUT COMPLICATIONS (4) Cystitis Assessment/Plan: hx of, stable Code(s): N30.90 - CYSTITIS, UNSPECIFIED WITHOUT HEMATURIA (5) Urethral stenosis Assessment/Plan: hx of, stable Code(s): [id number] - (6) Prophylactic measure Assessment/Plan: FEN no additional IVF needed monitor electrolytes diabetic/low sodium diet DVT heparin sq Dispo maintain as inpatient full code discharge planning Code(s): Z29.9 - ENCOUNTER FOR PROPHYLACTIC MEASURES, UNSPECIFIED (7) Asthma exacerbation Assessment/Plan: c/w solmedrol 60mg q6h duo nebds q6h standing no abx at this time, CXR without effusion/infiltartes, afebrile, WBC 13 singular 10mg added pulmonary consultation appreciated Code(s): J45.901 - UNSPECIFIED ASTHMA WITH (ACUTE) EXACERBATION Visit type - Emergency Visit Emergency Visit: Yes ED Registration Date: 05/31/19 Care time: The patient presented to the Emergency Department on the above date and was hospitalized for further evaluation of their emergent condition. - New Patient This patient is new to me today: No - Critical Care Critical Care patient: No - Discharge Referral Referred to [facility] Med P.C.: No
[2019-06-01 09:09] LABS: ALBUMIN 3.9 g/dl (3.4-5.0); BILIRUBIN,TOTAL 0.3 mg/dL (0.2-1); BLOOD UREA NITROGEN 15.6 mg/dL (7-18); CALCIUM 9.7 mg/dL (8.5-10.1); CREATININE 0.8 mg/dL (0.55-1.3); MAGNESIUM 2.5 mg/dL (1.8-2.4); POTASSIUM 4.3 mmol/L (3.5-5.1); TOT PROT 7.2 g/dl (6.4-8.2)
[2019-06-01] MEDS: LISINOPRIL 5 MG TABLET (FP) PO SCH (09:14)
[2019-06-01] MEDS: ASPIRIN COATED 81 MG TABLET.EC PO SCH (09:15)
[2019-06-01] MEDS: PANTOPRAZOLE 40 MG TABLET (FP) PO SCH (09:15)
[2019-06-01] MEDS: HEPARIN NA (PORCINE) 5,000 UNITS/ML 1ML VIAL SQ SCH ×2 (09:15→21:47)
[2019-06-01 10:31] LABS: ANISOCYTOSIS 0; MACROCYTOSIS 0; PLATELET ESTIMATE NORMAL
[2019-06-01] MEDS ORDERED: ALBUTEROL SO4 0.042% IH SOL 1.25 MG/3 ML VIAL.NEB NEB PRN (11:38)
--- NOTE | 2019-06-01 11:38 | CON.PULM ---
Consult Consult Specialty:: PULMONARY Referred by:: JODY Silverman Reason for Consultation:: shortness of breath - History of Present Illness Chief Complaint: shortness of breath History of Present Illness: 59yo female with h/o HTN, DM, hyperlipidemia, COPD/asthma who was admitted with shortness of breath. Recently discharged from [facility] for asthma exacerbation last month. Reports subjective fevers. +cough productive of white sputum and wheezing. Also reports waking up at night short of breath and restless legs. She is maintained on Incruse and albuterol. Not on LABA/ICS. She is a remote smoker. - History Source History Provided By: Patient, Medical Record Limitations to Obtaining History: Language Barrier - Past Medical History Cardio/Vascular: Yes: HTN, Hyperlipdemia Pulmonary: Yes: Asthma Renal/: Yes: Other (urethral stenosis, cycstitis) Endocrine: Yes: Diabetes Mellitus - Past Surgical History Past Surgical History: Yes: Joint Replacement (BL TKR) - Alcohol/Substance Use Hx Alcohol Use: No History of Substance Use: reports: None - Smoking History Smoking history: Never smoked Have you smoked in the past 12 months: No If you are a former smoker, when did you quit?: 40 - Social History ADL: Independent History of Recent Travel: No Home Medications - Allergies Allergies/Adverse Reactions: Allergies Allergy/AdvReac Type Severity Reaction Status Date / Time sulfamethoxazole Allergy Mild Itching Verified 05/10/19 12:17 [From Bactrim] trimethoprim [From Bactrim] Allergy Mild Itching Verified 05/10/19 12:17 cauliflower Allergy Verified 05/10/19 12:17 - Home Medications Home Medications: Ambulatory Orders Aspirin Coated [Ecotrin -] 81 mg PO DAILY 07/05/17 Metformin HCl [Glucophage] 500 mg PO BID 08/02/18 Albuterol Sulfate Inhaler - [Ventolin Hfa Inhaler -] 1 - 2 inh PO QID 09/16/18 Glyburide 5 mg PO DAILY 09/16/18 Ibuprofen 800 mg PO PRN 09/16/18 Lisinopril [Zestril] 2.5 mg PO DAILY 09/16/18 Pantoprazole Sodium 40 mg PO DAILY 09/16/18 Zolpidem Tartrate 10 mg PO HS 09/16/18 predniSONE [Deltasone -] 40 mg PO UTDICT 8 Days #10 tablet 05/10/19 Albuterol Sulfate [Proair Respiclick] 90 mcg IH DAILY 05/31/19 Review of Systems - Review of Systems Constitutional: reports: Weakness. denies: Chills, Fever Eyes: denies: Recent Change in Vision HENT: denies: Nasal Congestion, Throat Pain Neck: denies: Stiffness, Tenderness Cardiovascular: reports: Shortness of Breath. denies: Chest Pain, Edema Respiratory: reports: Cough, PND, SOB, Wheezing. denies: Hemoptysis Gastrointestinal: denies: Abdominal Pain, Nausea, Vomiting Genitourinary: denies: Dysuria, Hematuria Neurological: denies: Dizziness, Headache Endocrine: denies: Unexplained Weight Loss Physical Exam Vital Sings: Vital Signs Temperature 97.7 F 06/01/19 10:00 Pulse Rate 110 H 06/01/19 10:00 Respiratory Rate 20 06/01/19 10:00 Blood Pressure 138/81 06/01/19 10:00 O2 Sat by Pulse Oximetry (%) 97 05/31/19 22:00 Constitutional: Yes: Anxious Eyes: Yes: Conjunctiva Clear, EOM Intact HENT: Yes: Atraumatic, Normocephalic Neck: Yes: Supple, Trachea Midline Cardiovascular: Yes: Regular Rate and Rhythm Respiratory: Yes: Poor Air Entry ...Clubbing: No Gastrointestinal: Yes: Normal Bowel Sounds, Soft. No: Tenderness Edema: No Neurological: Yes: Alert, Oriented Labs: CBC, BMP 06/01/19 08:03 06/01/19 08:03 Imaging - Results Chest X-ray: Report Reviewed, Image Reviewed Cat Scan: Report Reviewed, Image Reviewed (no infiltrates) Problem List - Problems (1) Asthma exacerbation Code(s): J45.901 - UNSPECIFIED ASTHMA WITH (ACUTE) EXACERBATION Assessment/Plan Acute Asthma Exacerbation HTN DM Hyperlipidemia r/o LUCERO/RLS - continue IV medrol - inhaled bronchodilators standing and PRN - will add LABA - start singulair - O2 to keep SpO2 >90% - DVT prophylaxis - outpt PFTs and NPSG Thank you for this consult Hilario Contreras MD
[2019-06-01] MEDS: ALBUTEROL SO4 2.5/IPRATROPIUM 0.5 INH SOL 3 ML VIAL.NEB. NEB SCH ×4 (12:35→19:38)
[2019-06-01] MEDS ORDERED: PT OWN MED DRAWER 7, Y5N ONE (13:24)
[2019-06-01] MEDS: BUDESONIDE/FORMETEROL FUMARATE 160/4.5 mcg INHALER IH SCH ×2 (16:35→22:23)
[2019-06-01] MEDS: MONTELUKAST NA 10 MG TABLET PO SCH (21:47)
[2019-06-02] MEDS: INSULIN SLIDING SCALE (NOVOLOG) 1 VIAL SQ SCH ×4 (06:03→21:58)
[2019-06-02] MEDS: methylPREDNISolone NA SUCC 40 MG/1 ML VIAL IVPUSH SCH ×3 (06:03→17:08)
[2019-06-02] MEDS: ALBUTEROL SO4 2.5/IPRATROPIUM 0.5 INH SOL 3 ML VIAL.NEB. NEB SCH ×4 (07:25→20:00)
[2019-06-02] MEDS: ACETAMINOPHEN 325 MG TABLET (FP) PO PRN (07:49)
--- NOTE | 2019-06-02 08:26 | PN ---
Progress Note, Physician Chief Complaint: Wheezing less today, using supplemental O2. C/o stress incontinence upon coughing History of Present Illness: The patient is a 59 year old female with with PMH of asthma, NIDDM, HTN, HLD, urethral stenosis and cystitis, who presents to the ED with c/o 2 months of asthma attacks, palpitations and SOB. Pt was recently discharged from [facility] 04/24 for asthma exacerbation. Patient has been on 40 mg PO prednisone (pt has been taking 20 mg PO, finished yesterday), breathing machine 5x a day, albuterol sulfate and ventolin. - Current Medication List Current Medications: Active Medications Acetaminophen (Tylenol -) 650 mg PO Q6H PRN PRN Reason: PAIN LEVEL 1 - 3 Last Admin: 06/02/19 07:49 Dose: 650 mg Albuterol Sulfate (Ventolin 0.042trength) -) 1 amp NEB Q4H PRN PRN Reason: SHORT OF BREATH/WHEEZING Albuterol/Ipratropium (Duoneb -) 1 amp NEB RQID [facility] Last Admin: 06/02/19 07:25 Dose: 1 amp Aspirin (Ecotrin -) 81 mg PO DAILY [facility] Last Admin: 06/01/19 09:15 Dose: 81 mg Budesonide/Formoterol Fumarate (Symbicort 160/4.5mcg -) 2 puff IH BID [facility] Last Admin: 06/01/19 22:23 Dose: 2 puff Heparin Sodium (Porcine) (Heparin -) 5,000 unit SQ BID [facility] Last Admin: 06/01/19 21:47 Dose: 5,000 unit Insulin Aspart (Novolog Vial Sliding Scale -) 1 vial SQ ACHS [facility]; Protocol Last Admin: 06/02/19 06:03 Dose: 6 unit Lisinopril (Prinivil) 2.5 mg PO DAILY [facility] Last Admin: 06/01/19 09:14 Dose: 2.5 mg Methylprednisolone Sodium Succinate (Solu-Medrol -) 60 mg IVPUSH Q6H [facility] Last Admin: 06/02/19 06:03 Dose: 60 mg Montelukast Sodium (Singulair -) 10 mg PO HS [facility] Last Admin: 06/01/19 21:47 Dose: 10 mg Pantoprazole Sodium (Protonix -) 40 mg PO DAILY [facility] Last Admin: 06/01/19 09:15 Dose: 40 mg Zolpidem Tartrate (Ambien -) 10 mg PO HS PRN PRN Reason: INSOMNIA - Objective Vital Signs: Vital Signs Temperature 98 F 06/02/19 06:00 Pulse Rate 81 06/02/19 06:00 Respiratory Rate 20 06/02/19 06:00 Blood Pressure 116/73 06/02/19 06:00 O2 Sat by Pulse Oximetry (%) 98 06/01/19 22:00 Additional Findings/Remarks: Constitutional: Yes: Well Nourished, No Distress, Calm Eyes: Yes: WNL, Conjunctiva Clear HENT: Yes: WNL, Atraumatic, Normocephalic Neck: Yes: WNL, Supple, Trachea Midline Cardiovascular: Yes: WNL, Regular Rate and Rhythm Respiratory: Yes: Regular, Poor Air Entry, Wheezes Gastrointestinal: Yes: WNL, Normal Bowel Sounds ...Rectal Exam: Yes: Deferred Genitourinary: Yes: WNL Breast(s): Yes: WNL Musculoskeletal: Yes: WNL Extremities: Yes: WNL Edema: No Peripheral Pulses WNL: Yes Peripheral Pulses: Left Radial: 2+, Right Radial: 2+, Left Doralis Pedis: 2+, Right Dorsalis Pedis: 2+, Left Femoral: 2+, Right Femoral: 2+ Integumentary: Yes: WNL Neurological: Yes: WNL, Alert, Oriented ...Motor Strength: WNL Psychiatric: Yes: WNL Problem List - Problems (1) HTN (hypertension) Assessment/Plan: c/w home lisinipril Code(s): I10 - ESSENTIAL (PRIMARY) HYPERTENSION (2) HLD (hyperlipidemia) Assessment/Plan: diet controlled Code(s): E78.5 - HYPERLIPIDEMIA, UNSPECIFIED (3) Diabetes Assessment/Plan: hold metformin/glyburide BGM AC/HS with novolog sliding scale diabetic diet Code(s): E11.9 - TYPE 2 DIABETES MELLITUS WITHOUT COMPLICATIONS (4) Cystitis Assessment/Plan: hx of, stable Code(s): N30.90 - CYSTITIS, UNSPECIFIED WITHOUT HEMATURIA (5) Urethral stenosis Assessment/Plan: hx of, stable Code(s): [id number] - (6) Prophylactic measure Assessment/Plan: FEN no additional IVF needed monitor electrolytes diabetic/low sodium diet DVT heparin sq Dispo maintain as inpatient full code discharge planning Code(s): Z29.9 - ENCOUNTER FOR PROPHYLACTIC MEASURES, UNSPECIFIED (7) Asthma exacerbation Assessment/Plan: c/w solmedrol 60mg q6h duo nebds q6h standing no abx at this time, CXR without effusion/infiltartes, afebrile, WBC 13 c/w singular 10mg pulmonary consultation appreciated Code(s): J45.901 - UNSPECIFIED ASTHMA WITH (ACUTE) EXACERBATION (8) Stress incontinence Code(s): N39.3 - STRESS INCONTINENCE (FEMALE) (MALE) (9) Stress bladder incontinence, female Assessment/Plan: c/o stress incontinence when coughing start ditropan Code(s): N39.3 - STRESS INCONTINENCE (FEMALE) (MALE) Visit type - Emergency Visit Emergency Visit: Yes ED Registration Date: 05/31/19 Care time: The patient presented to the Emergency Department on the above date and was hospitalized for further evaluation of their emergent condition. - New Patient This patient is new to me today: No - Critical Care Critical Care patient: No - Discharge Referral Referred to [facility] Med P.C[facility] No
[2019-06-02 08:31] LABS: BASO % 0.1 % (0-2.0); HEMOGLOBIN 12.8 GM/dL (10.7-15.3); LYMPH % 4.2 % (8-40); MCH 27.7 pg (25.7-33.7); MCHC 32.7 g/dl (32.0-36.0); MEAN CELL VOLUME 84.7 fl (80-96); MEAN PLT VOLUME 9.4 fl (7.5-11.1); MONO % 3.4 % (3.8-10.2); NEUT % 92.3 % (42.8-82.8); PLATELET COUNT 357 K/MM3 (134-434); RBC 4.61 M/mm3 (3.60-5.2); RDW 14.7 % (11.6-15.6); WHITE BLOOD COUNT 18.1 K/mm3 (4.0-10.0)
[2019-06-02 08:32] LABS: ALBUMIN 3.8 g/dl (3.4-5.0); BILIRUBIN,TOTAL 0.5 mg/dL (0.2-1); BLOOD UREA NITROGEN 18.1 mg/dL (7-18); CALCIUM 9.8 mg/dL (8.5-10.1); CREATININE 0.8 mg/dL (0.55-1.3); MAGNESIUM 2.5 mg/dL (1.8-2.4); POTASSIUM 4.5 mmol/L (3.5-5.1); TOT PROT 7.3 g/dl (6.4-8.2)
[2019-06-02] MEDS ORDERED: PT OWN MED DRAWER 7, Y5N ONE ×3 (08:51→21:52)
[2019-06-02] MEDS: HEPARIN NA (PORCINE) 5,000 UNITS/ML 1ML VIAL SQ SCH ×2 (09:01→21:57)
[2019-06-02] MEDS: LISINOPRIL 5 MG TABLET (FP) PO SCH (09:01)
[2019-06-02] MEDS: PANTOPRAZOLE 40 MG TABLET (FP) PO SCH (09:02)
[2019-06-02] MEDS: ASPIRIN COATED 81 MG TABLET.EC PO SCH (09:02)
[2019-06-02] MEDS: BUDESONIDE/FORMETEROL FUMARATE 160/4.5 mcg INHALER IH SCH ×2 (09:02→21:58)
[2019-06-02 10:27] LABS: PLATELET ESTIMATE NORMAL
[2019-06-02] MEDS ORDERED: INSULIN (NOVOLOG) ASPART 100 UNITS/ML 10ML VIAL ONE ×2 (10:52→21:52)
[2019-06-02] MEDS: OXYBUTYNIN CHLORIDE 5 MG TABLET PO SCH ×2 (12:47→21:57)
--- NOTE | 2019-06-02 15:29 | PN ---
Progress Note (short form) - Note Progress Note: PULMONARY COUGH WITH HEADACHE VSS/AFEBRILE Constitutional: Yes: Anxious Eyes: Yes: Conjunctiva Clear, EOM Intact HENT: Yes: Atraumatic, Normocephalic Neck: Yes: Supple, Trachea Midline Cardiovascular: Yes: Regular Rate and Rhythm Respiratory: Yes: Poor Air Entry ...Clubbing: No Gastrointestinal: Yes: Normal Bowel Sounds, Soft. No: Tenderness Edema: No Neurological: Yes: Alert, Oriented Labs: REVIEWED Imaging - Results Chest X-ray: Report Reviewed, Image Reviewed Cat Scan: Report Reviewed, Image Reviewed (no infiltrates) Problem List - Problems (1) Asthma exacerbation Code(s): J45.901 - UNSPECIFIED ASTHMA WITH (ACUTE) EXACERBATION Assessment/Plan Acute Asthma Exacerbation HTN DM Hyperlipidemia r/o LUCERO/RLS - continue IV medrol - inhaled bronchodilators standing and PRN - will add LABA - singulair - O2 to keep SpO2 >90% - DVT prophylaxis - outpt PFTs and NPSG Tyrone TOVAR MD
[2019-06-02] MEDS: MONTELUKAST NA 10 MG TABLET PO SCH (21:57)
[2019-06-03] MEDS: methylPREDNISolone NA SUCC 40 MG/1 ML VIAL IVPUSH SCH ×4 (00:08→17:09)
[2019-06-03] MEDS: INSULIN SLIDING SCALE (NOVOLOG) 1 VIAL SQ SCH ×4 (06:06→22:26)
[2019-06-03] MEDS ORDERED: PT OWN MED DRAWER 7, Y5N ONE ×3 (06:08→21:10)
[2019-06-03] MEDS ORDERED: INSULIN (NOVOLOG) ASPART 100 UNITS/ML 10ML VIAL ONE ×2 (06:08→11:26)
--- NOTE | 2019-06-03 08:36 | PN ---
Progress Note, Physician Chief Complaint: Breathing continues to improve, still using supplemental O2. C/o stress incontinence upon coughing History of Present Illness: The patient is a 59 year old female with with PMH of asthma, NIDDM, HTN, HLD, urethral stenosis and cystitis, who presents to the ED with c/o 2 months of asthma attacks, palpitations and SOB. Pt was recently discharged from [facility] 04/24 for asthma exacerbation. Patient has been on 40 mg PO prednisone (pt has been taking 20 mg PO, finished yesterday), breathing machine 5x a day, albuterol sulfate and ventolin. - Current Medication List Current Medications: Active Medications Acetaminophen (Tylenol -) 650 mg PO Q6H PRN PRN Reason: PAIN LEVEL 1 - 3 Last Admin: 06/02/19 07:49 Dose: 650 mg Albuterol Sulfate (Ventolin 0.042trength) -) 1 amp NEB Q4H PRN PRN Reason: SHORT OF BREATH/WHEEZING Last Admin: 06/03/19 04:59 Dose: 1 amp Albuterol/Ipratropium (Duoneb -) 1 amp NEB RQID [facility] Last Admin: 06/02/19 20:00 Dose: 1 amp Aspirin (Ecotrin -) 81 mg PO DAILY [facility] Last Admin: 06/02/19 09:02 Dose: 81 mg Budesonide/Formoterol Fumarate (Symbicort 160/4.5mcg -) 2 puff IH BID [facility] Last Admin: 06/02/19 21:58 Dose: 2 puff Heparin Sodium (Porcine) (Heparin -) 5,000 unit SQ BID [facility] Last Admin: 06/02/19 21:57 Dose: 5,000 unit Insulin Aspart (Novolog Vial Sliding Scale -) 1 vial SQ ACHS [facility]; Protocol Last Admin: 06/03/19 06:06 Dose: 4 unit Lisinopril (Prinivil) 2.5 mg PO DAILY [facility] Last Admin: 06/02/19 09:01 Dose: 2.5 mg Methylprednisolone Sodium Succinate (Solu-Medrol -) 60 mg IVPUSH Q6H [facility] Last Admin: 06/03/19 05:53 Dose: 60 mg Montelukast Sodium (Singulair -) 10 mg PO HS [facility] Last Admin: 06/02/19 21:57 Dose: 10 mg Oxybutynin Chloride (Ditropan -) 5 mg PO BID [facility] Last Admin: 06/02/19 21:57 Dose: 5 mg Pantoprazole Sodium (Protonix -) 40 mg PO DAILY [facility] Last Admin: 06/02/19 09:02 Dose: 40 mg Zolpidem Tartrate (Ambien -) 10 mg PO HS PRN PRN Reason: INSOMNIA - Objective Vital Signs: Vital Signs Temperature 97.8 F 06/03/19 07:52 Pulse Rate 86 06/03/19 07:52 Respiratory Rate 16 06/03/19 07:52 Blood Pressure 150/80 06/03/19 07:52 O2 Sat by Pulse Oximetry (%) 98 06/02/19 21:00 Additional Findings/Remarks: Constitutional: Yes: Well Nourished, No Distress, Calm Eyes: Yes: WNL, Conjunctiva Clear HENT: Yes: WNL, Atraumatic, Normocephalic Neck: Yes: WNL, Supple, Trachea Midline Cardiovascular: Yes: WNL, Regular Rate and Rhythm Respiratory: Yes: Regular, Poor Air Entry, Wheezes Gastrointestinal: Yes: WNL, Normal Bowel Sounds ...Rectal Exam: Yes: Deferred Genitourinary: Yes: WNL Breast(s): Yes: WNL Musculoskeletal: Yes: WNL Extremities: Yes: WNL Edema: No Peripheral Pulses WNL: Yes Peripheral Pulses: Left Radial: 2+, Right Radial: 2+, Left Doralis Pedis: 2+, Right Dorsalis Pedis: 2+, Left Femoral: 2+, Right Femoral: 2+ Integumentary: Yes: WNL Neurological: Yes: WNL, Alert, Oriented ...Motor Strength: WNL Psychiatric: Yes: WNL Labs: CBC, BMP 06/02/19 07:30 06/02/19 07:30 Problem List - Problems (1) HTN (hypertension) Assessment/Plan: c/w home lisinipril Code(s): I10 - ESSENTIAL (PRIMARY) HYPERTENSION (2) HLD (hyperlipidemia) Assessment/Plan: diet controlled Code(s): E78.5 - HYPERLIPIDEMIA, UNSPECIFIED (3) Diabetes Assessment/Plan: hold metformin/glyburide BGM AC/HS with novolog sliding scale diabetic diet Code(s): E11.9 - TYPE 2 DIABETES MELLITUS WITHOUT COMPLICATIONS (4) Cystitis Assessment/Plan: hx of, stable Code(s): N30.90 - CYSTITIS, UNSPECIFIED WITHOUT HEMATURIA (5) Urethral stenosis Assessment/Plan: hx of, stable Code(s): [id number] - (6) Prophylactic measure Assessment/Plan: FEN no additional IVF needed monitor electrolytes diabetic/low sodium diet DVT heparin sq Dispo maintain as inpatient full code discharge planning Code(s): Z29.9 - ENCOUNTER FOR PROPHYLACTIC MEASURES, UNSPECIFIED (7) Asthma exacerbation Assessment/Plan: solmedrol 60mg decreased to q 8h duo nebds q6h standing no abx at this time, CXR without effusion/infiltartes, afebrile, WBC 15 but could be reactive to steroids c/w singular 10mg pulmonary consultation appreciated Code(s): J45.901 - UNSPECIFIED ASTHMA WITH (ACUTE) EXACERBATION (8) Stress bladder incontinence, female Assessment/Plan: c/o stress incontinence when coughing started ditropan, will monitor Code(s): N39.3 - STRESS INCONTINENCE (FEMALE) (MALE) (9) Leukocytosis Assessment/Plan: wbc 15.7 afebrile most likely r/t steroids will monitor Code(s): D72.829 - ELEVATED WHITE BLOOD CELL COUNT, UNSPECIFIED Visit type - Emergency Visit Emergency Visit: Yes ED Registration Date: 05/31/19 Care time: The patient presented to the Emergency Department on the above date and was hospitalized for further evaluation of their emergent condition. - New Patient This patient is new to me today: No - Critical Care Critical Care patient: No - Discharge Referral Referred to [facility] Med P.C.: No
[2019-06-03 08:53] LABS: BASO % 0.1 % (0-2.0); HEMATOCRIT 39.9 % (32.4-45.2); HEMOGLOBIN 12.9 GM/dL (10.7-15.3); LYMPH % 3.4 % (8-40); MCH 27.3 pg (25.7-33.7); MCHC 32.3 g/dl (32.0-36.0); MEAN CELL VOLUME 84.5 fl (80-96); MEAN PLT VOLUME 9.2 fl (7.5-11.1); MONO % 3.9 % (3.8-10.2); NEUT % 92.6 % (42.8-82.8); PLATELET COUNT 334 K/MM3 (134-434); RBC 4.72 M/mm3 (3.60-5.2); RDW 14.5 % (11.6-15.6); WHITE BLOOD COUNT 15.7 K/mm3 (4.0-10.0)
[2019-06-03] MEDS: ALBUTEROL SO4 2.5/IPRATROPIUM 0.5 INH SOL 3 ML VIAL.NEB. NEB SCH ×4 (09:10→21:20)
[2019-06-03] MEDS: ASPIRIN COATED 81 MG TABLET.EC PO SCH (09:15)
[2019-06-03] MEDS: PANTOPRAZOLE 40 MG TABLET (FP) PO SCH (09:15)
[2019-06-03] MEDS: LISINOPRIL 5 MG TABLET (FP) PO SCH (09:15)
[2019-06-03] MEDS: HEPARIN NA (PORCINE) 5,000 UNITS/ML 1ML VIAL SQ SCH ×2 (09:15→22:23)
[2019-06-03] MEDS: OXYBUTYNIN CHLORIDE 5 MG TABLET PO SCH ×2 (09:15→22:23)
[2019-06-03] MEDS: BUDESONIDE/FORMETEROL FUMARATE 160/4.5 mcg INHALER IH SCH ×2 (09:16→22:27)
[2019-06-03 09:30] LABS: ALBUMIN 3.7 g/dl (3.4-5.0); BILIRUBIN,TOTAL 0.5 mg/dL (0.2-1); BLOOD UREA NITROGEN 21.9 mg/dL (7-18); CALCIUM 9.5 mg/dL (8.5-10.1); CREATININE 0.8 mg/dL (0.55-1.3); MAGNESIUM 2.4 mg/dL (1.8-2.4); POTASSIUM 4.5 mmol/L (3.5-5.1)
[2019-06-03] MEDS: ACETAMINOPHEN 325 MG TABLET (FP) PO PRN ×2 (11:37→18:58)
--- NOTE | 2019-06-03 14:12 | PN ---
Progress Note (short form) - Note Progress Note: PULMONARY Breathing better. Less cough and wheezes. Vital Signs Period Temp Pulse Resp BP Sys/Braswell Pulse Ox Last 24 Hr 97.8 F-98 F 85-114 16-20 114-150/62-82 98-98 Gen: less tachypneic Heart: RRR Lung: better air entry Abd: soft, nontender Ext: no edema CBC, BMP 06/03/19 08:20 06/03/19 08:20 Active Medications Acetaminophen (Tylenol -) 650 mg PO Q6H PRN PRN Reason: PAIN LEVEL 1 - 3 Last Admin: 06/03/19 11:37 Dose: 650 mg Albuterol Sulfate (Ventolin 0.042trength) -) 1 amp NEB Q4H PRN PRN Reason: SHORT OF BREATH/WHEEZING Last Admin: 06/03/19 04:59 Dose: 1 amp Albuterol/Ipratropium (Duoneb -) 1 amp NEB RQID [facility] Last Admin: 06/03/19 11:20 Dose: 1 amp Aspirin (Ecotrin -) 81 mg PO DAILY [facility] Last Admin: 06/03/19 09:15 Dose: 81 mg Budesonide/Formoterol Fumarate (Symbicort 160/4.5mcg -) 2 puff IH BID [facility] Last Admin: 06/03/19 09:16 Dose: 2 puff Heparin Sodium (Porcine) (Heparin -) 5,000 unit SQ BID [facility] Last Admin: 06/03/19 09:15 Dose: 5,000 unit Insulin Aspart (Novolog Vial Sliding Scale -) 1 vial SQ [facility]; Protocol Last Admin: 06/03/19 11:27 Dose: 8 unit Lisinopril (Prinivil) 2.5 mg PO DAILY [facility] Last Admin: 06/03/19 09:15 Dose: 2.5 mg Methylprednisolone Sodium Succinate (Solu-Medrol -) 60 mg IVPUSH Q6H [facility] Last Admin: 06/03/19 11:31 Dose: 60 mg Montelukast Sodium (Singulair -) 10 mg PO HS [facility] Last Admin: 06/02/19 21:57 Dose: 10 mg Oxybutynin Chloride (Ditropan -) 5 mg PO BID [facility] Last Admin: 06/03/19 09:15 Dose: 5 mg Pantoprazole Sodium (Protonix -) 40 mg PO DAILY [facility] Last Admin: 06/03/19 09:15 Dose: 40 mg Zolpidem Tartrate (Ambien -) 10 mg PO HS PRN PRN Reason: INSOMNIA A/P Acute Asthma Exacerbation HTN DM Hyperlipidemia r/o LUCERO/RLS - will decrease medrol to q8h - inhaled bronchodilators standing and PRN - symbicort - singulair - O2 to keep SpO2 >90% - DVT prophylaxis - outpt PFTs and NPSG Problem List - Problems (1) Asthma exacerbation Code(s): J45.901 - UNSPECIFIED ASTHMA WITH (ACUTE) EXACERBATION
[2019-06-03 14:54] LABS: ANISOCYTOSIS 0; MACROCYTOSIS 0; PLATELET ESTIMATE NORMAL
[2019-06-03] MEDS: MONTELUKAST NA 10 MG TABLET PO SCH (22:23)
[2019-06-04] MEDS: methylPREDNISolone NA SUCC 40 MG/1 ML VIAL IVPUSH SCH ×3 (03:44→17:30)
[2019-06-04] MEDS: ACETAMINOPHEN 325 MG TABLET (FP) PO PRN ×2 (03:47→15:30)
[2019-06-04] MEDS: INSULIN SLIDING SCALE (NOVOLOG) 1 VIAL SQ SCH ×4 (07:18→22:05)
--- NOTE | 2019-06-04 08:06 | PN ---
Progress Note, Physician Chief Complaint: Breathing continues to improve, less use of supplemental O2. History of Present Illness: The patient is a 59 year old female with with PMH of asthma, NIDDM, HTN, HLD, urethral stenosis and cystitis, who presents to the ED with c/o 2 months of asthma attacks, palpitations and SOB. Pt was recently discharged from [facility] 04/24 for asthma exacerbation. Patient has been on 40 mg PO prednisone (pt has been taking 20 mg PO, finished yesterday), breathing machine 5x a day, albuterol sulfate and ventolin. - Current Medication List Current Medications: Active Medications Acetaminophen (Tylenol -) 650 mg PO Q6H PRN PRN Reason: PAIN LEVEL 1 - 3 Last Admin: 06/04/19 03:47 Dose: 650 mg Albuterol Sulfate (Ventolin 0.042trength) -) 1 amp NEB Q4H PRN PRN Reason: SHORT OF BREATH/WHEEZING Last Admin: 06/03/19 04:59 Dose: 1 amp Albuterol/Ipratropium (Duoneb -) 1 amp NEB RQID [facility] Last Admin: 06/03/19 21:20 Dose: 1 amp Aspirin (Ecotrin -) 81 mg PO DAILY [facility] Last Admin: 06/03/19 09:15 Dose: 81 mg Budesonide/Formoterol Fumarate (Symbicort 160/4.5mcg -) 2 puff IH BID [facility] Last Admin: 06/03/19 22:27 Dose: 2 puff Heparin Sodium (Porcine) (Heparin -) 5,000 unit SQ BID [facility] Last Admin: 06/03/19 22:23 Dose: 5,000 unit Insulin Aspart (Novolog Vial Sliding Scale -) 1 vial SQ ACHS [facility]; Protocol Last Admin: 06/04/19 07:18 Dose: 4 unit Lisinopril (Prinivil) 2.5 mg PO DAILY [facility] Last Admin: 06/03/19 09:15 Dose: 2.5 mg Methylprednisolone Sodium Succinate (Solu-Medrol -) 60 mg IVPUSH Q8H [facility] Last Admin: 06/04/19 03:44 Dose: 60 mg Montelukast Sodium (Singulair -) 10 mg PO HS [facility] Last Admin: 06/03/19 22:23 Dose: 10 mg Oxybutynin Chloride (Ditropan -) 5 mg PO BID [facility] Last Admin: 06/03/19 22:23 Dose: 5 mg Pantoprazole Sodium (Protonix -) 40 mg PO DAILY [facility] Last Admin: 06/03/19 09:15 Dose: 40 mg Zolpidem Tartrate (Ambien -) 10 mg PO HS PRN PRN Reason: INSOMNIA - Objective Vital Signs: Vital Signs Temperature 98.1 F 06/03/19 23:55 Pulse Rate 74 06/03/19 23:55 Respiratory Rate 18 06/03/19 23:55 Blood Pressure 131/82 06/03/19 23:55 O2 Sat by Pulse Oximetry (%) 98 06/03/19 21:00 Additional Findings/Remarks: PE: Constitutional: Yes: Well Nourished, No Distress, Calm Eyes: Yes: WNL, Conjunctiva Clear HENT: Yes: WNL, Atraumatic, Normocephalic Neck: Yes: WNL, Supple, Trachea Midline Cardiovascular: Yes: WNL, Regular Rate and Rhythm Respiratory: Yes: Regular, Poor Air Entry, Wheezes Gastrointestinal: Yes: WNL, Normal Bowel Sounds ...Rectal Exam: Yes: Deferred Genitourinary: Yes: WNL Breast(s): Yes: WNL Musculoskeletal: Yes: WNL Extremities: Yes: WNL Edema: No Peripheral Pulses WNL: Yes Peripheral Pulses: Left Radial: 2+, Right Radial: 2+, Left Doralis Pedis: 2+, Right Dorsalis Pedis: 2+, Left Femoral: 2+, Right Femoral: 2+ Integumentary: Yes: WNL Neurological: Yes: WNL, Alert, Oriented ...Motor Strength: WNL Psychiatric: Yes: WNL Labs: CBC, BMP 06/03/19 08:20 06/03/19 08:20 Problem List - Problems (1) HTN (hypertension) Assessment/Plan: c/w home lisinipril Code(s): I10 - ESSENTIAL (PRIMARY) HYPERTENSION (2) HLD (hyperlipidemia) Assessment/Plan: diet controlled Code(s): E78.5 - HYPERLIPIDEMIA, UNSPECIFIED (3) Diabetes Assessment/Plan: holding metformin/glyburide BGM high and HgbA1C 7.6. Will start levemir 8u hs while on steroids c/w BGM AC/HS with novolog sliding scale diabetic diet Code(s): E11.9 - TYPE 2 DIABETES MELLITUS WITHOUT COMPLICATIONS (4) Cystitis Assessment/Plan: hx of, stable Code(s): N30.90 - CYSTITIS, UNSPECIFIED WITHOUT HEMATURIA (5) Urethral stenosis Assessment/Plan: hx of, stable Code(s): [id number] - (6) Prophylactic measure Assessment/Plan: FEN adequate PO intake monitor electrolytes diabetic/low sodium diet DVT heparin sq Dispo maintain as inpatient full code discharge planning Code(s): Z29.9 - ENCOUNTER FOR PROPHYLACTIC MEASURES, UNSPECIFIED (7) Asthma exacerbation Assessment/Plan: solmedrol 60mg decreased to q 8h duo nebds q6h standing no abx at this time, CXR without effusion/infiltartes, afebrile, WBC 15 but could be reactive to steroids c/w singular 10mg pulmonary consultation appreciated Code(s): J45.901 - UNSPECIFIED ASTHMA WITH (ACUTE) EXACERBATION (8) Stress bladder incontinence, female Assessment/Plan: c/o stress incontinence when coughing c/w ditropan, will monitor Code(s): N39.3 - STRESS INCONTINENCE (FEMALE) (MALE) (9) Leukocytosis Assessment/Plan: wbc 18.7 afebrile most likely r/t steroids will monitor Code(s): D72.829 - ELEVATED WHITE BLOOD CELL COUNT, UNSPECIFIED Visit type - Emergency Visit Emergency Visit: Yes ED Registration Date: 05/31/19 Care time: The patient presented to the Emergency Department on the above date and was hospitalized for further evaluation of their emergent condition. - New Patient This patient is new to me today: No - Critical Care Critical Care patient: No - Discharge Referral Referred to [facility] No
[2019-06-04] MEDS: ALBUTEROL SO4 2.5/IPRATROPIUM 0.5 INH SOL 3 ML VIAL.NEB. NEB SCH ×4 (08:44→20:01)
[2019-06-04 08:58] LABS: BASO % 0.1 % (0-2.0); HEMATOCRIT 42.2 % (32.4-45.2); HEMOGLOBIN 13.7 GM/dL (10.7-15.3); LYMPH % 3.1 % (8-40); MCH 27.5 pg (25.7-33.7); MCHC 32.4 g/dl (32.0-36.0); MEAN PLT VOLUME 9.5 fl (7.5-11.1); MONO % 6.5 % (3.8-10.2); NEUT % 90.3 % (42.8-82.8); PLATELET COUNT 341 K/MM3 (134-434); RBC 4.96 M/mm3 (3.60-5.2); RDW 14.9 % (11.6-15.6); WHITE BLOOD COUNT 18.7 K/mm3 (4.0-10.0)
[2019-06-04] MEDS ORDERED: PT OWN MED DRAWER 7, Y5N ONE ×2 (09:25→21:34)
[2019-06-04] MEDS: PANTOPRAZOLE 40 MG TABLET (FP) PO SCH (09:26)
[2019-06-04] MEDS: ASPIRIN COATED 81 MG TABLET.EC PO SCH (09:26)
[2019-06-04] MEDS: LISINOPRIL 5 MG TABLET (FP) PO SCH (09:26)
[2019-06-04] MEDS: HEPARIN NA (PORCINE) 5,000 UNITS/ML 1ML VIAL SQ SCH ×2 (09:27→22:00)
[2019-06-04] MEDS: OXYBUTYNIN CHLORIDE 5 MG TABLET PO SCH ×2 (09:28→22:00)
[2019-06-04] MEDS: BUDESONIDE/FORMETEROL FUMARATE 160/4.5 mcg INHALER IH SCH ×2 (09:28→22:01)
[2019-06-04 09:48] LABS: ALBUMIN 3.7 g/dl (3.4-5.0); BILIRUBIN,TOTAL 0.4 mg/dL (0.2-1); BLOOD UREA NITROGEN 20.9 mg/dL (7-18); CALCIUM 9.3 mg/dL (8.5-10.1); CREATININE 0.9 mg/dL (0.55-1.3); MAGNESIUM 2.6 mg/dL (1.8-2.4); POTASSIUM 4.4 mmol/L (3.5-5.1); TOT PROT 6.9 g/dl (6.4-8.2)
[2019-06-04 10:12] LABS: ANISOCYTOSIS 3+; MACROCYTOSIS 0; PLATELET ESTIMATE NORMAL
[2019-06-04] MEDS ORDERED: INSULIN (NOVOLOG) ASPART 100 UNITS/ML 10ML VIAL ONE (11:36)
--- NOTE | 2019-06-04 12:47 | PN ---
Progress Note (short form) - Note Progress Note: PULMONARY Breathing better. Less cough and wheezes. c/o headache. Vital Signs Period Temp Pulse Resp BP Sys/Braswell Pulse Ox Last 24 Hr 98.1 F-98.5 F 70-74 18-20 116-131/59-82 98 Gen: less tachypneic Heart: RRR Lung: better air entry Abd: soft, nontender Ext: no edema CBC, BMP 06/04/19 08:15 06/04/19 08:15 Active Medications Acetaminophen (Tylenol -) 650 mg PO Q6H PRN PRN Reason: PAIN LEVEL 1 - 3 Last Admin: 06/04/19 03:47 Dose: 650 mg Albuterol Sulfate (Ventolin 0.042trength) -) 1 amp NEB Q4H PRN PRN Reason: SHORT OF BREATH/WHEEZING Last Admin: 06/03/19 04:59 Dose: 1 amp Albuterol/Ipratropium (Duoneb -) 1 amp NEB RQID [facility] Last Admin: 06/04/19 08:44 Dose: 1 amp Aspirin (Ecotrin -) 81 mg PO DAILY [facility] Last Admin: 06/04/19 09:26 Dose: 81 mg Budesonide/Formoterol Fumarate (Symbicort 160/4.5mcg -) 2 puff IH BID [facility] Last Admin: 06/04/19 09:28 Dose: 2 puff Heparin Sodium (Porcine) (Heparin -) 5,000 unit SQ BID [facility] Last Admin: 06/04/19 09:27 Dose: 5,000 unit Insulin Aspart (Novolog Vial Sliding Scale -) 1 vial SQ [facility]; Protocol Last Admin: 06/04/19 11:37 Dose: 8 unit Insulin Detemir (Levemir Vial) 8 units SQ [facility] Lisinopril (Prinivil) 2.5 mg PO DAILY [facility] Last Admin: 06/04/19 09:26 Dose: 2.5 mg Methylprednisolone Sodium Succinate (Solu-Medrol -) 60 mg IVPUSH Q8H [facility] Last Admin: 06/04/19 09:27 Dose: 60 mg Montelukast Sodium (Singulair -) 10 mg PO [facility] Last Admin: 06/03/19 22:23 Dose: 10 mg Oxybutynin Chloride (Ditropan -) 5 mg PO BID [facility] Last Admin: 06/04/19 09:28 Dose: 5 mg Pantoprazole Sodium (Protonix -) 40 mg PO DAILY [facility] Last Admin: 06/04/19 09:26 Dose: 40 mg Zolpidem Tartrate (Ambien -) 10 mg PO HS PRN PRN Reason: INSOMNIA A/P Acute Asthma Exacerbation HTN DM Hyperlipidemia r/o LUCERO/RLS - continue medrol q8h - inhaled bronchodilators standing and PRN - symbicort - singulair - O2 to keep SpO2 >90% - DVT prophylaxis - outpt PFTs and NPSG Problem List - Problems (1) Asthma exacerbation Code(s): J45.901 - UNSPECIFIED ASTHMA WITH (ACUTE) EXACERBATION
[2019-06-04] MEDS ORDERED: INSULIN (LEVEMIR) 100 UNITS/ML UNITS SQ SCH (22:00)
[2019-06-04] MEDS: MONTELUKAST NA 10 MG TABLET PO SCH (22:00)
[2019-06-05] MEDS: ACETAMINOPHEN 325 MG TABLET (FP) PO PRN ×3 (00:18→21:54)
[2019-06-05] MEDS: methylPREDNISolone NA SUCC 40 MG/1 ML VIAL IVPUSH SCH ×4 (01:06→17:15)
[2019-06-05] MEDS: INSULIN SLIDING SCALE (NOVOLOG) 1 VIAL SQ SCH ×4 (06:46→22:02)
[2019-06-05] MEDS: ALBUTEROL SO4 2.5/IPRATROPIUM 0.5 INH SOL 3 ML VIAL.NEB. NEB SCH ×4 (07:41→20:07)
[2019-06-05 08:00] LABS: BASO % 0.1 % (0-2.0); HEMATOCRIT 39.8 % (32.4-45.2); LYMPH % 3.5 % (8-40); MCH 27.5 pg (25.7-33.7); MCHC 32.6 g/dl (32.0-36.0); MEAN CELL VOLUME 84.2 fl (80-96); MEAN PLT VOLUME 9.7 fl (7.5-11.1); MONO % 3.8 % (3.8-10.2); NEUT % 92.6 % (42.8-82.8); PLATELET COUNT 329 K/MM3 (134-434); RBC 4.73 M/mm3 (3.60-5.2); RDW 14.8 % (11.6-15.6); WHITE BLOOD COUNT 16.4 K/mm3 (4.0-10.0)
[2019-06-05 09:02] LABS: ALBUMIN 3.4 g/dl (3.4-5.0); BILIRUBIN,TOTAL 0.4 mg/dL (0.2-1); BLOOD UREA NITROGEN 17.8 mg/dL (7-18); CALCIUM 9.4 mg/dL (8.5-10.1); CREATININE 0.8 mg/dL (0.55-1.3); MAGNESIUM 2.9 mg/dL (1.8-2.4); POTASSIUM 4.5 mmol/L (3.5-5.1); TOT PROT 6.4 g/dl (6.4-8.2)
[2019-06-05] MEDS: PANTOPRAZOLE 40 MG TABLET (FP) PO SCH (09:12)
[2019-06-05] MEDS: OXYBUTYNIN CHLORIDE 5 MG TABLET PO SCH ×2 (09:12→21:54)
[2019-06-05] MEDS: HEPARIN NA (PORCINE) 5,000 UNITS/ML 1ML VIAL SQ SCH ×2 (09:12→21:53)
[2019-06-05] MEDS: ASPIRIN COATED 81 MG TABLET.EC PO SCH (09:12)
[2019-06-05] MEDS: LISINOPRIL 5 MG TABLET (FP) PO SCH (09:13)
[2019-06-05] MEDS: BUDESONIDE/FORMETEROL FUMARATE 160/4.5 mcg INHALER IH SCH ×2 (09:13→22:00)
--- NOTE | 2019-06-05 10:38 | PN ---
Progress Note (short form) - Note Progress Note: Sitting in bed. Still woth MARIN, even with short distances. No acute events overnight. Intake & Output 06/02/19 06/03/19 06/04/19 06/05/19 23:59 23:59 23:59 23:59 Intake Total 980 710 960 620 Balance 980 710 960 620 Weight 179 lb 180 lb 181 lb Last Vital Signs Temp Pulse Resp BP Pulse Ox 98.1 F 75 20 130/68 98 06/05/19 06:00 06/05/19 06:00 06/05/19 06:00 06/05/19 06:00 06/03/19 21:00 Active Medications Acetaminophen (Tylenol -) 650 mg PO Q6H PRN PRN Reason: PAIN LEVEL 1 - 3 Last Admin: 06/05/19 09:26 Dose: 650 mg Albuterol Sulfate (Ventolin 0.042trength) -) 1 amp NEB Q4H PRN PRN Reason: SHORT OF BREATH/WHEEZING Last Admin: 06/03/19 04:59 Dose: 1 amp Albuterol/Ipratropium (Duoneb -) 1 amp NEB RQID [facility] Last Admin: 06/05/19 07:41 Dose: 1 amp Aspirin (Ecotrin -) 81 mg PO DAILY [facility] Last Admin: 06/05/19 09:12 Dose: 81 mg Budesonide/Formoterol Fumarate (Symbicort 160/4.5mcg -) 2 puff IH BID [facility] Last Admin: 06/05/19 09:13 Dose: 2 puff Heparin Sodium (Porcine) (Heparin -) 5,000 unit SQ BID [facility] Last Admin: 06/05/19 09:12 Dose: 5,000 unit Insulin Aspart (Novolog Vial Sliding Scale -) 1 vial SQ ACHS [facility]; Protocol Last Admin: 06/05/19 06:46 Dose: 6 unit Insulin Detemir (Levemir Vial) 8 units SQ HS [facility] Last Admin: 06/04/19 22:01 Dose: 8 units Lisinopril (Prinivil) 2.5 mg PO DAILY [facility] Last Admin: 06/05/19 09:13 Dose: 2.5 mg Methylprednisolone Sodium Succinate (Solu-Medrol -) 60 mg IVPUSH Q8H [facility] Last Admin: 06/05/19 09:11 Dose: 60 mg Montelukast Sodium (Singulair -) 10 mg PO HS [facility] Last Admin: 06/04/19 22:00 Dose: 10 mg Oxybutynin Chloride (Ditropan -) 5 mg PO BID [facility] Last Admin: 06/05/19 09:12 Dose: 5 mg Pantoprazole Sodium (Protonix -) 40 mg PO DAILY [facility] Last Admin: 06/05/19 09:12 Dose: 40 mg Zolpidem Tartrate (Ambien -) 10 mg PO HS PRN PRN Reason: INSOMNIA Gen: Awake and alert, NAD Heart: RRR Lung: Scattered rhonchi and expiratory wheezes Abd: soft, nontender Ext: no edema Laboratory Results - last 24 hr 06/04/19 06/04/19 06/04/19 11:24 16:17 22:05 WBC RBC Hgb Hct MCV MCH MCHC RDW Plt Count MPV Absolute Neuts (auto) Neutrophils % Lymphocytes % Monocytes % Eosinophils % Basophils % Nucleated RBC % Sodium Potassium Chloride Carbon Dioxide Anion Gap BUN Creatinine Est GFR (CKD-EPI)AfAm Est GFR (CKD-EPI)NonAf POC Glucometer 317 220 367 Random Glucose Calcium Magnesium Total Bilirubin AST ALT Alkaline Phosphatase Total Protein Albumin 06/05/19 06/05/19 06/05/19 06:45 07:10 07:10 WBC 16.4 H RBC 4.73 Hgb 13.0 Hct 39.8 MCV 84.2 MCH 27.5 MCHC 32.6 RDW 14.8 Plt Count 329 MPV 9.7 Absolute Neuts (auto) 15.2 H Neutrophils % 92.6 H Lymphocytes % 3.5 L Monocytes % 3.8 Eosinophils % 0.0 Basophils % 0.1 Nucleated RBC % 0 Sodium 137 Potassium 4.5 Chloride 101 Carbon Dioxide 26 Anion Gap 10 BUN 17.8 Creatinine 0.8 Est GFR (CKD-EPI)AfAm 92.87 Est GFR (CKD-EPI)NonAf 80.13 POC Glucometer 293 Random Glucose 307 H Calcium 9.4 Magnesium 2.9 H Total Bilirubin 0.4 AST 10 L ALT 40 Alkaline Phosphatase 81 Total Protein 6.4 Albumin 3.4 Problem List - Problems (1) Asthma exacerbation Code(s): J45.901 - UNSPECIFIED ASTHMA WITH (ACUTE) EXACERBATION A/P Acute Asthma Exacerbation HTN DM Hyperlipidemia R/O LUCERO/RLS - Medrol Q8h - inhaled bronchodilators standing and PRN - symbicort - singulair - O2 to keep SpO2 >90% - DVT prophylaxis - outpt PFTs and NPSG Dr Hooks
[2019-06-05 11:19] LABS: ANISOCYTOSIS 0; MACROCYTOSIS 0; PLATELET ESTIMATE NORMAL
--- NOTE | 2019-06-05 11:59 | PN ---
Physical Exam: SUBJECTIVE: Patient seen and examined. feels like her breathing is not improving and that she is more dependent on oxygen. OBJECTIVE: The patient is a 59 year old female with with PMH of asthma, NIDDM, HTN, HLD, urethral stenosis and cystitis, who presents to the ED with c/o 2 months of asthma attacks, palpitations and SOB. Pt was recently discharged from [facility] 04/24 for asthma exacerbation. Patient has been on a prednisone taper , but breathing not improved and has been using albuterol sulfate and ventolin at home continuously. Vital Signs Period Temp Pulse Resp BP Sys/Braswell Pulse Ox Last 24 Hr 98 F-98.3 F 70-89 18-20 130-138/68-74 95 GENERAL: The patient is awake, alert, and fully oriented, in no acute distress. HEAD: Normal with no signs of trauma. EYES: PERRL, extraocular movements intact, sclera anicteric, conjunctiva clear. No ptosis. ENT: Ears normal, nares patent, oropharynx clear without exudates, moist mucous membranes. NECK: Trachea midline, full range of motion, supple. LUNGS: left lung + wheezing, right lung clear HEART: Regular rate and rhythm ABDOMEN: Soft, nontender, nondistended, normoactive bowel sounds, no guarding, no rebound, no hepatosplenomegaly, no masses. EXTREMITIES: 2+ pulses, warm, well-perfused, no edema. NEUROLOGICAL: Normal speech, gait not observed. PSYCH: Normal mood, normal affect. SKIN: Warm, dry, normal turgor, no rashes or lesions noted Laboratory Results - last 24 hr 06/04/19 06/04/19 06/05/19 16:17 22:05 06:45 WBC RBC Hgb Hct MCV MCH MCHC RDW Plt Count MPV Absolute Neuts (auto) Neutrophils % Neutrophils % (Manual) Band Neutrophils % Lymphocytes % Lymphocytes % (Manual) Monocytes % Monocytes % (Manual) Eosinophils % Eosinophils % (Manual) Basophils % Basophils % (Manual) Myelocytes % (Man) Promyelocytes % (Man) Blast Cells % (Manual) Nucleated RBC % Metamyelocytes Hypochromia Platelet Estimate Polychromasia Poikilocytosis Anisocytosis Microcytosis Macrocytosis Sodium Potassium Chloride Carbon Dioxide Anion Gap BUN Creatinine Est GFR (CKD-EPI)AfAm Est GFR (CKD-EPI)NonAf POC Glucometer 220 367 293 Random Glucose Calcium Magnesium Total Bilirubin AST ALT Alkaline Phosphatase Total Protein Albumin 06/05/19 06/05/19 07:10 07:10 WBC 16.4 H RBC 4.73 Hgb 13.0 Hct 39.8 MCV 84.2 MCH 27.5 MCHC 32.6 RDW 14.8 Plt Count 329 MPV 9.7 Absolute Neuts (auto) 15.2 H Neutrophils % 92.6 H Neutrophils % (Manual) 93.0 H Band Neutrophils % 0.0 Lymphocytes % 3.5 L Lymphocytes % (Manual) 1.0 L D Monocytes % 3.8 Monocytes % (Manual) 2 L Eosinophils % 0.0 Eosinophils % (Manual) 0.0 Basophils % 0.1 Basophils % (Manual) 0.0 Myelocytes % (Man) 1 D Promyelocytes % (Man) 0 Blast Cells % (Manual) 0 Nucleated RBC % 0 Metamyelocytes 2 D Hypochromia 0 Platelet Estimate Normal Polychromasia 0 Poikilocytosis 0 Anisocytosis 0 Microcytosis 0 Macrocytosis 0 Sodium 137 Potassium 4.5 Chloride 101 Carbon Dioxide 26 Anion Gap 10 BUN 17.8 Creatinine 0.8 Est GFR (CKD-EPI)AfAm 92.87 Est GFR (CKD-EPI)NonAf 80.13 POC Glucometer Random Glucose 307 H Calcium 9.4 Magnesium 2.9 H Total Bilirubin 0.4 AST 10 L ALT 40 Alkaline Phosphatase 81 Total Protein 6.4 Albumin 3.4 Active Medications Generic Name Dose Route Start Last Admin Trade Name Freq PRN Reason Stop Dose Admin Acetaminophen 650 mg 05/31/19 19:37 06/05/19 09:26 Tylenol - PO 650 mg Q6H PRN Administration PAIN LEVEL 1 - 3 Albuterol Sulfate 1 amp 06/01/19 11:38 06/03/19 04:59 Ventolin 0.042trength) - NEB 1 amp Q4H PRN Administration SHORT OF BREATH/WHEEZING Albuterol/Ipratropium 1 amp 05/31/19 16:00 06/05/19 07:41 Duoneb - NEB 1 amp RQID DOREEN Administration Aspirin 81 mg 06/01/19 10:00 06/05/19 09:12 Ecotrin - PO 81 mg DAILY DOREEN Administration Budesonide/Formoterol Fumarate 2 puff 06/01/19 12:00 06/05/19 09:13 Symbicort 160/4.5mcg - IH 2 puff BID DOREEN Administration Heparin Sodium (Porcine) 5,000 unit 05/31/19 22:00 06/05/19 09:12 Heparin - SQ 5,000 unit BID DOREEN Administration Insulin Aspart 1 vial 05/31/19 16:30 06/05/19 06:46 Novolog Vial Sliding Scale - SQ 6 unit ACHS DOREEN Administration Protocol Insulin Detemir 8 units 06/04/19 22:00 06/04/19 22:01 Levemir Vial SQ 8 units HS DOREEN Administration Lisinopril 2.5 mg 06/01/19 10:00 06/05/19 09:13 Prinivil PO 2.5 mg DAILY DOREEN Administration Methylprednisolone Sodium Succinate 60 mg 06/03/19 18:00 06/05/19 09:11 Solu-Medrol - IVPUSH 60 mg Q8H DOREEN Administration Montelukast Sodium 10 mg 06/01/19 22:00 06/04/19 22:00 Singulair - PO 10 mg HS DOREEN Administration Oxybutynin Chloride 5 mg 06/02/19 12:00 06/05/19 09:12 Ditropan - PO 5 mg BID DOREEN Administration Pantoprazole Sodium 40 mg 06/01/19 10:00 06/05/19 09:12 Protonix - PO 40 mg DAILY DOREEN Administration Zolpidem Tartrate 10 mg 05/31/19 22:00 Ambien - PO HS PRN INSOMNIA ASSESSMENT/PLAN: Problem List - Problems (1) Shortness of breath Assessment/Plan: patient continues to require supplemental oxygen chest cta with several small thoracic sclerotic foci, 3 month follow up recommended. Code(s): R06.02 - SHORTNESS OF BREATH (2) Asthma exacerbation Assessment/Plan: continues to require oxygen continuously on medrol q8, on bronchodilators standing and PRN continue symbicort, singulair, supplemental oxygen pre and post prior to d/c pulmonary following Code(s): J45.901 - UNSPECIFIED ASTHMA WITH (ACUTE) EXACERBATION (3) Diabetes Assessment/Plan: novolog ac/hs, levemir 10 Code(s): E11.9 - TYPE 2 DIABETES MELLITUS WITHOUT COMPLICATIONS (4) HLD (hyperlipidemia) Code(s): E78.5 - HYPERLIPIDEMIA, UNSPECIFIED (5) HTN (hypertension) Code(s): I10 - ESSENTIAL (PRIMARY) HYPERTENSION (6) Prophylactic measure Assessment/Plan: heparin bid protonix Code(s): Z29.9 - ENCOUNTER FOR PROPHYLACTIC MEASURES, UNSPECIFIED Visit type - Emergency Visit Emergency Visit: Yes ED Registration Date: 05/31/19 Care time: The patient presented to the Emergency Department on the above date and was hospitalized for further evaluation of their emergent condition. - New Patient This patient is new to me today: Yes Date on this admission: 06/05/19 - Critical Care Critical Care patient: No - Discharge Referral Referred to [facility] No
[2019-06-05] MEDS ORDERED: INSULIN (LEVEMIR) 100 UNITS/ML UNITS SQ SCH (14:30)
[2019-06-05] MEDS: MONTELUKAST NA 10 MG TABLET PO SCH (21:54)
[2019-06-06] MEDS: methylPREDNISolone NA SUCC 40 MG/1 ML VIAL IVPUSH SCH ×2 (02:30→09:25)
[2019-06-06 05:54] VITALS: TEMP 98
[2019-06-06] MEDS: INSULIN SLIDING SCALE (NOVOLOG) 1 VIAL SQ SCH ×2 (06:09→12:27)
[2019-06-06] MEDS: ALBUTEROL SO4 2.5/IPRATROPIUM 0.5 INH SOL 3 ML VIAL.NEB. NEB SCH ×2 (07:56→12:24)
[2019-06-06 08:30] LABS: BASO % 0.2 % (0-2.0); HEMATOCRIT 40.4 % (32.4-45.2); HEMOGLOBIN 13.1 GM/dL (10.7-15.3); LYMPH % 4.4 % (8-40); MCH 27.4 pg (25.7-33.7); MCHC 32.4 g/dl (32.0-36.0); MEAN CELL VOLUME 84.6 fl (80-96); MEAN PLT VOLUME 9.5 fl (7.5-11.1); MONO % 3.6 % (3.8-10.2); NEUT % 91.8 % (42.8-82.8); PLATELET COUNT 321 K/MM3 (134-434); RBC 4.78 M/mm3 (3.60-5.2); RDW 14.7 % (11.6-15.6); WHITE BLOOD COUNT 16.4 K/mm3 (4.0-10.0)
[2019-06-06 08:57] LABS: ALBUMIN 3.3 g/dl (3.4-5.0); BILIRUBIN,TOTAL 0.4 mg/dL (0.2-1); BLOOD UREA NITROGEN 19.1 mg/dL (7-18); CALCIUM 8.7 mg/dL (8.5-10.1); CREATININE 0.7 mg/dL (0.55-1.3); MAGNESIUM 2.8 mg/dL (1.8-2.4); POTASSIUM 4.9 mmol/L (3.5-5.1); TOT PROT 6.3 g/dl (6.4-8.2)
[2019-06-06] MEDS ORDERED: PT OWN MED DRAWER 7, Y5N ONE (09:21)
[2019-06-06 09:25] VITALS: BP 128/71; PULSE 93
[2019-06-06] MEDS: OXYBUTYNIN CHLORIDE 5 MG TABLET PO SCH (09:25)
[2019-06-06] MEDS: ASPIRIN COATED 81 MG TABLET.EC PO SCH (09:25)
[2019-06-06] MEDS: HEPARIN NA (PORCINE) 5,000 UNITS/ML 1ML VIAL SQ SCH (09:25)
[2019-06-06] MEDS: LISINOPRIL 5 MG TABLET (FP) PO SCH (09:25)
[2019-06-06] MEDS: PANTOPRAZOLE 40 MG TABLET (FP) PO SCH (09:26)
[2019-06-06] MEDS: BUDESONIDE/FORMETEROL FUMARATE 160/4.5 mcg INHALER IH SCH (09:26)
[2019-06-06 10:15] LABS: ANISOCYTOSIS 0; MACROCYTOSIS 0; PLATELET ESTIMATE NORMAL
--- NOTE | 2019-06-06 10:27 | PN ---
Progress Note (short form) - Note Progress Note: Walking in the room. Reports feeling much improved from yesterday. No acute events overnight. Wants to go home. Intake & Output 06/03/19 06/04/19 06/05/19 06/06/19 23:59 23:59 23:59 23:59 Intake Total 514 474 0510 Balance 558 917 5003 Weight 179 lb 180 lb 181 lb 179 lb Last Vital Signs Temp Pulse Resp BP Pulse Ox 98 F 93 H 20 128/71 95 06/06/19 09:24 06/06/19 09:24 06/06/19 09:24 06/06/19 09:24 06/05/19 21:00 Active Medications Acetaminophen (Tylenol -) 650 mg PO Q6H PRN PRN Reason: PAIN LEVEL 1 - 3 Last Admin: 06/05/19 21:54 Dose: 650 mg Albuterol Sulfate (Ventolin 0.042trength) -) 1 amp NEB Q4H PRN PRN Reason: SHORT OF BREATH/WHEEZING Last Admin: 06/03/19 04:59 Dose: 1 amp Albuterol/Ipratropium (Duoneb -) 1 amp NEB RQID [facility] Last Admin: 06/06/19 07:56 Dose: 1 amp Aspirin (Ecotrin -) 81 mg PO DAILY [facility] Last Admin: 06/06/19 09:25 Dose: 81 mg Budesonide/Formoterol Fumarate (Symbicort 160/4.5mcg -) 2 puff IH BID [facility] Last Admin: 06/06/19 09:26 Dose: 2 puff Heparin Sodium (Porcine) (Heparin -) 5,000 unit SQ BID [facility] Last Admin: 06/06/19 09:25 Dose: 5,000 unit Insulin Aspart (Novolog Vial Sliding Scale -) 1 vial SQ ACHS [facility]; Protocol Last Admin: 06/06/19 06:09 Dose: 4 unit Insulin Detemir (Levemir Vial) 10 units SQ HS [facility] Last Admin: 06/05/19 21:54 Dose: 10 units Lisinopril (Prinivil) 2.5 mg PO DAILY [facility] Last Admin: 06/06/19 09:25 Dose: 2.5 mg Methylprednisolone Sodium Succinate (Solu-Medrol -) 60 mg IVPUSH Q8H [facility] Last Admin: 12/24/19 09:25 Dose: 60 mg Montelukast Sodium (Singulair -) 10 mg PO HS [facility] Last Admin: 06/05/19 21:54 Dose: 10 mg Oxybutynin Chloride (Ditropan -) 5 mg PO BID [facility] Last Admin: 06/06/19 09:25 Dose: 5 mg Pantoprazole Sodium (Protonix -) 40 mg PO DAILY [facility] Last Admin: 06/06/19 09:26 Dose: 40 mg Zolpidem Tartrate (Ambien -) 10 mg PO HS PRN PRN Reason: INSOMNIA Gen: Awake and alert, NAD Heart: RRR Lung: Scattered rhonchi, no expiratory wheeze appreciated Abd: soft, nontender Ext: no edema Laboratory Results - last 24 hr 06/05/19 06/05/19 06/05/19 07:10 12:00 16:56 WBC RBC Hgb Hct MCV MCH MCHC RDW Plt Count MPV Absolute Neuts (auto) Neutrophils % Neutrophils % (Manual) 93.0 H Band Neutrophils % 0.0 Lymphocytes % Lymphocytes % (Manual) 1.0 L D Monocytes % Monocytes % (Manual) 2 L Eosinophils % Eosinophils % (Manual) 0.0 Basophils % Basophils % (Manual) 0.0 Myelocytes % (Man) 1 D Promyelocytes % (Man) 0 Blast Cells % (Manual) 0 Nucleated RBC % 0 Metamyelocytes 2 D Hypochromia 0 Platelet Estimate Normal Polychromasia 0 Poikilocytosis 0 Anisocytosis 0 Microcytosis 0 Macrocytosis 0 Sodium Potassium Chloride Carbon Dioxide Anion Gap BUN Creatinine Est GFR (CKD-EPI)AfAm Est GFR (CKD-EPI)NonAf POC Glucometer 290 316 Random Glucose Calcium Magnesium Total Bilirubin AST ALT Alkaline Phosphatase Total Protein Albumin 06/05/19 06/06/19 06/06/19 22:01 05:44 07:41 WBC 16.4 H RBC 4.78 Hgb 13.1 Hct 40.4 MCV 84.6 MCH 27.4 MCHC 32.4 RDW 14.7 Plt Count 321 MPV 9.5 Absolute Neuts (auto) 15.1 H Neutrophils % 91.8 H Neutrophils % (Manual) Band Neutrophils % Lymphocytes % 4.4 L D Lymphocytes % (Manual) Monocytes % 3.6 L Monocytes % (Manual) Eosinophils % 0.0 Eosinophils % (Manual) Basophils % 0.2 Basophils % (Manual) Myelocytes % (Man) Promyelocytes % (Man) Blast Cells % (Manual) Nucleated RBC % 0 Metamyelocytes Hypochromia Platelet Estimate Polychromasia Poikilocytosis Anisocytosis Microcytosis Macrocytosis Sodium Potassium Chloride Carbon Dioxide Anion Gap BUN Creatinine Est GFR (CKD-EPI)AfAm Est GFR (CKD-EPI)NonAf POC Glucometer 282 207 Random Glucose Calcium Magnesium Total Bilirubin AST ALT Alkaline Phosphatase Total Protein Albumin 06/06/19 07:41 WBC RBC Hgb Hct MCV MCH MCHC RDW Plt Count MPV Absolute Neuts (auto) Neutrophils % Neutrophils % (Manual) Band Neutrophils % Lymphocytes % Lymphocytes % (Manual) Monocytes % Monocytes % (Manual) Eosinophils % Eosinophils % (Manual) Basophils % Basophils % (Manual) Myelocytes % (Man) Promyelocytes % (Man) Blast Cells % (Manual) Nucleated RBC % Metamyelocytes Hypochromia Platelet Estimate Polychromasia Poikilocytosis Anisocytosis Microcytosis Macrocytosis Sodium 137 Potassium 4.9 Chloride 99 Carbon Dioxide 34 H Anion Gap 5 L BUN 19.1 H Creatinine 0.7 Est GFR (CKD-EPI)AfAm 109.15 Est GFR (CKD-EPI)NonAf 94.17 POC Glucometer Random Glucose 194 H Calcium 8.7 Magnesium 2.8 H Total Bilirubin 0.4 AST 10 L ALT 37 Alkaline Phosphatase 76 Total Protein 6.3 L Albumin 3.3 L Problem List - Problems (1) Asthma exacerbation Code(s): J45.901 - UNSPECIFIED ASTHMA WITH (ACUTE) EXACERBATION A/P Acute Asthma Exacerbation HTN DM Hyperlipidemia R/O LUCERO/RLS - Can change to Prednisone taper over 10 days, starting at 40mg daily - symbicort - singulair - O2 to keep SpO2 >90% - DVT prophylaxis - outpt PFTs and NPSG - No smoking discussed - Will order Pre and Post ambulation saturation - There is no Pulmonary contraindication for DC planning to home Dr Hooks
--- NOTE | 2019-06-06 11:07 | DS ---
Physical Exam: SUBJECTIVE: Patient seen and examined at the bedside. on room air, denies chest pain or shortness of breath. States she will follow up with her pulmonolgist, but wants to go home today. OBJECTIVE: The patient is a 59 year old female with with PMH of asthma, NIDDM, HTN, HLD, urethral stenosis and cystitis, who presents to the ED with c/o 2 months of asthma attacks, palpitations and SOB. Pt was recently discharged from [facility] 04/24 for asthma exacerbation. Patient has been on a prednisone taper , but breathing not improved and has been using albuterol sulfate and ventolin at home continuously. She was treated with a Solu-Medrol taper, duonebs and supplemental oxygen during her hospitalization. She was followed by pulmonogist who has cleared her for discharge home on Prednisone taper. Patient does not meet the criteria for home oxygen use and is tolerating room air. Vital Signs Period Temp Pulse Resp BP Sys/Braswell Pulse Ox Last 24 Hr 98 F-98.3 F 72-93 20-20 118-141/67-79 95-96 PHYSICAL EXAM GENERAL: The patient is awake, alert, and fully oriented, in no acute distress. HEAD: Normal with no signs of trauma. EYES: PERRL, extraocular movements intact, sclera anicteric, conjunctiva clear. No ptosis. ENT: Ears normal, nares patent, oropharynx clear without exudates, moist mucous membranes. NECK: Trachea midline, full range of motion, supple. LUNGS: clear to auscultation bilaterally HEART: Regular rate and rhythm ABDOMEN: Soft, nontender, nondistended, normoactive bowel sounds, no guarding, no rebound, no hepatosplenomegaly, no masses. EXTREMITIES: 2+ pulses, warm, well-perfused, no edema. NEUROLOGICAL: Normal speech, gait not observed. PSYCH: Normal mood, normal affect. SKIN: Warm, dry, normal turgor, no rashes or lesions noted LABS Laboratory Results - last 24 hr 06/05/19 06/05/19 06/05/19 07:10 12:00 16:56 WBC RBC Hgb Hct MCV MCH MCHC RDW Plt Count MPV Absolute Neuts (auto) Neutrophils % Neutrophils % (Manual) 93.0 H Band Neutrophils % 0.0 Lymphocytes % Lymphocytes % (Manual) 1.0 L D Monocytes % Monocytes % (Manual) 2 L Eosinophils % Eosinophils % (Manual) 0.0 Basophils % Basophils % (Manual) 0.0 Myelocytes % (Man) 1 D Promyelocytes % (Man) 0 Blast Cells % (Manual) 0 Nucleated RBC % 0 Metamyelocytes 2 D Hypochromia 0 Platelet Estimate Normal Polychromasia 0 Poikilocytosis 0 Anisocytosis 0 Microcytosis 0 Macrocytosis 0 Sodium Potassium Chloride Carbon Dioxide Anion Gap BUN Creatinine Est GFR (CKD-EPI)AfAm Est GFR (CKD-EPI)NonAf POC Glucometer 290 316 Random Glucose Calcium Magnesium Total Bilirubin AST ALT Alkaline Phosphatase Total Protein Albumin 06/05/19 06/06/19 06/06/19 22:01 05:44 07:41 WBC 16.4 H RBC 4.78 Hgb 13.1 Hct 40.4 MCV 84.6 MCH 27.4 MCHC 32.4 RDW 14.7 Plt Count 321 MPV 9.5 Absolute Neuts (auto) 15.1 H Neutrophils % 91.8 H Neutrophils % (Manual) 89.0 H Band Neutrophils % 0.0 Lymphocytes % 4.4 L D Lymphocytes % (Manual) 5.0 L D Monocytes % 3.6 L Monocytes % (Manual) 3 L Eosinophils % 0.0 Eosinophils % (Manual) 0.0 Basophils % 0.2 Basophils % (Manual) 0.0 Myelocytes % (Man) 2 D Promyelocytes % (Man) 0 Blast Cells % (Manual) 0 Nucleated RBC % 0 Metamyelocytes 1 D Hypochromia 0 Platelet Estimate Normal Polychromasia 0 Poikilocytosis 0 Anisocytosis 0 Microcytosis 0 Macrocytosis 0 Sodium Potassium Chloride Carbon Dioxide Anion Gap BUN Creatinine Est GFR (CKD-EPI)AfAm Est GFR (CKD-EPI)NonAf POC Glucometer 282 207 Random Glucose Calcium Magnesium Total Bilirubin AST ALT Alkaline Phosphatase Total Protein Albumin 06/06/19 07:41 WBC RBC Hgb Hct MCV MCH MCHC RDW Plt Count MPV Absolute Neuts (auto) Neutrophils % Neutrophils % (Manual) Band Neutrophils % Lymphocytes % Lymphocytes % (Manual) Monocytes % Monocytes % (Manual) Eosinophils % Eosinophils % (Manual) Basophils % Basophils % (Manual) Myelocytes % (Man) Promyelocytes % (Man) Blast Cells % (Manual) Nucleated RBC % Metamyelocytes Hypochromia Platelet Estimate Polychromasia Poikilocytosis Anisocytosis Microcytosis Macrocytosis Sodium 137 Potassium 4.9 Chloride 99 Carbon Dioxide 34 H Anion Gap 5 L BUN 19.1 H Creatinine 0.7 Est GFR (CKD-EPI)AfAm 109.15 Est GFR (CKD-EPI)NonAf 94.17 POC Glucometer Random Glucose 194 H Calcium 8.7 Magnesium 2.8 H Total Bilirubin 0.4 AST 10 L ALT 37 Alkaline Phosphatase 76 Total Protein 6.3 L Albumin 3.3 L HOSPITAL COURSE: Date of Admission:05/31/19 Date of Discharge: 06/06/19 Minutes to complete discharge: 45 Discharge Summary Problems reviewed: Yes Reason For Visit: COPD,ASTHMA Current Active Problems Asthma (Acute) Asthma exacerbation (Acute) Cystitis (Acute) Diabetes (Acute) HLD (hyperlipidemia) (Acute) HTN (hypertension) (Acute) Leukocytosis (Acute) Prophylactic measure (Acute) Shortness of breath (Acute) Stress bladder incontinence, female (Acute) Stress incontinence (Acute) Urethral stenosis (Acute) Condition: Stable - Instructions Diet, Activity, Other Instructions: Please continue this Prednisone taper Prednisone 40mg ONCE PER DAY AT 8AM on 06/07/2019 Prednisone 40mg ONCE PER DAY AT 8AM on 06/08/2019 Prednisone 40mg ONCE PER DAY AT 8AM on 06/09/2019 Prednisone 40mg ONCE PER DAY AT 8AM on 06/10/2019 Prednisone 40mg ONCE PER DAY AT 8AM on 06/11/2019 Prednisone 30mg ONCE PER DAY AT 8AM on 06/12/2019 Prednisone 30mg ONCE PER DAY AT 8AM on 06/13/2019 Prednisone 20mg ONCE PER DAY AT 8AM on 06/14/2018 Prednisone 20mg ONCE PER DAY AT 8AM on 06/15/2018 Prednisone 10mg ONCE PER DAY AT 8AM on 06/16/2018 - LAST DOSE Please follow up with the pulmnologist within 1-2 weeks. Your blood sugars were elevated and may remain high with the steriods. Please administer levemir 8units before bedtime. Levemir is a slower acting insulin and peaks in 8 hours. Monitor your blood sugars before bedtime. if blood sugar is below 150, no need to give yourself Levemir that night. Thank you Referrals: Ryland Hooks MD [Staff Physician] - Sary Baxter [Primary Care Provider] - Disposition: HOME - Home Medications Comprehensive Discharge Medication List: Ambulatory Orders Aspirin Coated [Ecotrin -] 81 mg PO DAILY 07/05/17 Metformin HCl [Glucophage] 500 mg PO BID 08/02/18 Albuterol Sulfate Inhaler - [Ventolin HFA Inhaler -] 1 - 2 inh PO QID 09/16/18 Glyburide 5 mg PO DAILY 09/16/18 Ibuprofen 800 mg PO PRN 09/16/18 Lisinopril [Zestril] 2.5 mg PO DAILY 09/16/18 Pantoprazole Sodium 40 mg PO DAILY 09/16/18 Zolpidem Tartrate 10 mg PO HS 09/16/18 Albuterol Sulfate [Proair Respiclick] 90 mcg IH DAILY 05/31/19 Budesonide/Formeterol Fumarate [SYMBICORT 160/4.5mcg -] 2 puff IH BID #1 inhaler 06/04/19 Insulin (Levemir) [Levemir Vial] 8 units SQ HS #3 vial 06/04/19 Montelukast Na [Singulair -] 10 mg PO HS #30 tablet 06/04/19 Oxybutynin Chloride [Ditropan -] 5 mg PO BID #60 tablet 06/04/19 Alcohol Antiseptic Pads [Alcohol Prep Pad] 1 each TP ACHS #100 med..pad Lancets 1 each MC HS #100 each 06/06/19 Miscellaneous Medical Supply [Glucometer Device] 1 each SQ ASDIR #1 kit Miscellaneous Medical Supply [Glucometer Device] 1 each SQ ASDIR #1 kit Miscellaneous Medical Supply [Glucometer Test Strips #100] 1 each SQ ASDIR #1 box 06/06/19 [place], Safety [Easy Touch Fliplock Needle] 1 each MC HS #60 dis.[email or web address] Problem List - Problems (1) Shortness of breath Assessment/Plan: resolved. tolerating room air. chest cta with several small thoracic sclerotic foci, 3 month follow up recommended. Code(s): R06.02 - SHORTNESS OF BREATH (2) Asthma exacerbation Assessment/Plan: solumedrol stopped and will send home on a prednisone taper with GI protection. Code(s): J45.901 - UNSPECIFIED ASTHMA WITH (ACUTE) EXACERBATION (3) Diabetes Assessment/Plan: continue home medications Code(s): E11.9 - TYPE 2 DIABETES MELLITUS WITHOUT COMPLICATIONS (4) HLD (hyperlipidemia) Assessment/Plan: outpatient follow up Code(s): E78.5 - HYPERLIPIDEMIA, UNSPECIFIED (5) HTN (hypertension) Assessment/Plan: stable/controlled. Code(s): I10 - ESSENTIAL (PRIMARY) HYPERTENSION (6) Prophylactic measure Assessment/Plan: discharge home Code(s): Z29.9 - ENCOUNTER FOR PROPHYLACTIC MEASURES, UNSPECIFIED This patient is new to me today: No Emergency Visit: Yes ED Registration Date: 05/31/19 Care time: The patient presented to the Emergency Department on the above date and was hospitalized for further evaluation of their emergent condition. Critical Care patient: No - Discharge Referral Referred to [facility] No
== END 2019-06-06 13:32 | disposition home or self-care (01) | DRG 141 ==
LOC: JER 09:02 → JERBED 14:26 → J6S 18:08
PROVIDERS: ATTEND Nurse Practitioner Family
DX: J45.41 Moderate persistent asthma with (acute) exacerbation (principal); E11.9 Type 2 diabetes mellitus without complications; K21.9 Gastro-esophageal reflux disease without esophagitis; I10 Essential (primary) hypertension; E78.5 Hyperlipidemia, unspecified; N30.90 Cystitis, unspecified without hematuria; N39.3 Stress incontinence (female) (male); F41.9 Anxiety disorder, unspecified; D72.829 Elevated white blood cell count, unspecified; Z96.653 Presence of artificial knee joint, bilateral
CPT/HCPCS: 36415; 71045-TC-FY; 71275-TC; 80053; 82550; 82553; 82962; 83036; 83735; 83880; 84484; 85025; 93005; 93010; 94640; 97116-GP; 97161-GP; 99284-25; J1644

== ENCOUNTER 2023-02-22 05:01 | Day surgery (SDC) | payer OTHER ==
[2023-02-17 15:56] VITALS: BMI 30.1
[2023-02-22 09:36] VITALS: RESP 20; TEMP 97.1
[2023-02-22] MEDS ORDERED: DEXAMETHASONE SOD PHOSPHATE 10 MG/1 ML VIAL ONE (11:50)
[2023-02-22] MEDS ORDERED: SODIUM CHLORIDE 0.9% P/F 10 ML VIAL IJ ONE (12:17)
[2023-02-22] MEDS ORDERED: IOHEXOL 180 MG/1 ML ML IJ ONE (12:19)
[2023-02-22] MEDS ORDERED: BUPIVACAINE HCL/PF 0.5% (5 MG/ML) 30 ML VIAL IJ ONE ×2 (12:19)
[2023-02-22] MEDS ORDERED: DEXAMETHASONE SOD PHOSPHATE 10 MG/1 ML VIAL IVPUSH ONE (12:19)
[2023-02-22] MEDS ORDERED: LIDOCAINE HCL 1% PRESERVATIVE FREE - 30ML VIAL IJ ONE (12:19)
[2023-02-22] MEDS ORDERED: BUPIVACAINE HCL/PF 0.5% (5MG/ML) 10 ML VIAL ONE (12:41)
[2023-02-22 14:35] VITALS: BP 139/70; PULSE 98
== END 2023-02-22 14:45 | disposition home or self-care (01) ==
LOC: JASU-SURG 05:01
PROVIDERS: ATTEND Physical Medicine & Rehabilitation
PROC: 3E0T3BZ Introduction of Anesthetic Agent into Peripheral Nerves and Plexi, Percutaneous Approach (ICD-10-PCS; principal; 2023-02-22 12:00)
DX: M54.50 Low back pain, unspecified (principal)
CPT/HCPCS: 76000-TC-FY; 82962; J1100

== ENCOUNTER 2023-04-19 04:16 | Day surgery (SDC) | payer OTHER ==
[2023-04-15 12:54] VITALS: BMI 30.1
[2023-04-19] MEDS ORDERED: MIDAZOLAM HCL 2 MG/2 ML SINGLE DOSE VIAL ONE (11:47)
[2023-04-19] MEDS ORDERED: ONDANSETRON 4 MG/2 ML VIAL ONE (11:50)
[2023-04-19] MEDS ORDERED: FENTANYL CITRATE/PF 50 MCG/ML VIAL ONE (11:50)
[2023-04-19] MEDS ORDERED: IOHEXOL 180 MG/1 ML ML IJ ONE (11:52)
[2023-04-19] MEDS ORDERED: LIDOCAINE HCL 1% PRESERVATIVE FREE - 30ML VIAL IJ ONE (11:52)
[2023-04-19] MEDS ORDERED: BUPIVACAINE HCL 0.5% 250 MG/50 ML VIAL NR ONE (11:52)
[2023-04-19] MEDS ORDERED: DEXAMETHASONE SOD PHOSPHATE 10 MG/1 ML VIAL IVPUSH ONE (11:52)
[2023-04-19 14:01] VITALS: RESP 18; TEMP 97.8
[2023-04-19 14:04] VITALS: BP 133/79; PULSE 70
== END 2023-04-19 13:20 | disposition home or self-care (01) ==
LOC: JASU-SURG 04:16
PROVIDERS: ATTEND Physical Medicine & Rehabilitation
PROC: 3E0T3BZ Introduction of Anesthetic Agent into Peripheral Nerves and Plexi, Percutaneous Approach (ICD-10-PCS; principal; 2023-04-19 12:00)
DX: M47.816 Spondylosis without myelopathy or radiculopathy, lumbar region (principal); M54.50 Low back pain, unspecified
CPT/HCPCS: 76000-TC-FY; 82962; J1100

== ENCOUNTER 2023-05-17 06:00 | Day surgery (SDC) | payer OTHER ==
[2023-05-17 10:05] VITALS: BMI 29.5
[2023-05-17 10:26] VITALS: RESP 20
[2023-05-17] MEDS ORDERED: PROPOFOL 20 ML ONE (12:36)
[2023-05-17] MEDS ORDERED: FENTANYL CITRATE/PF 50 MCG/ML VIAL ONE ×2 (12:36→12:51)
[2023-05-17] MEDS ORDERED: DEXAMETHASONE SOD PHOSPHATE 10 MG/1 ML VIAL IVPUSH ONE ×2 (12:46)
[2023-05-17] MEDS ORDERED: IOHEXOL 180 MG/1 ML ML IJ ONE ×2 (12:46)
[2023-05-17] MEDS ORDERED: LIDOCAINE 1% P/F 10 MG/ML VIAL INF ONE (12:47)
[2023-05-17] MEDS ORDERED: LIDOCAINE HCL/PF 2% SDV 5ML VIAL INF ONE (12:47)
[2023-05-17] MEDS ORDERED: KETOROLAC TROMETHAMINE 30 MG/1 ML VIAL ONE (13:05)
[2023-05-17 13:44] VITALS: TEMP 97.1
[2023-05-17 14:39] VITALS: BP 125/62; PULSE 81
== END 2023-05-17 14:20 | disposition home or self-care (01) ==
LOC: JASU-SURG 06:00
PROVIDERS: ATTEND Physical Medicine & Rehabilitation
PROC: 3E0R33Z Introduction of Anti-inflammatory into Spinal Canal, Percutaneous Approach (ICD-10-PCS; principal; 2023-05-17 12:00)
DX: M54.12 Radiculopathy, cervical region (principal)
CPT/HCPCS: 76000-TC-FY; 82962; J1100

== ENCOUNTER 2025-03-05 06:31 | Emergency (ER) | payer OTHER ==
[2025-03-05 06:52] VITALS: BP 127/69; PULSE 89; RESP 18; TEMP 97.7; BMI 27.6
[2025-03-05] MEDS ORDERED: diphenhydrAMINE HCL 25 MG CAPSULE (FP) PO ONE ×2 (07:23→07:31)
[2025-03-05] MEDS ORDERED: FAMOTIDINE 20 MG TABLET PO ONE (07:23)
[2025-03-05] MEDS ORDERED: FAMOTIDINE 20 MG TABLET ONE (07:32)
[2025-03-05 08:36] LABS: HCV DIAGNOSTIC IN-HOUSE W/RFLX NON-REACTIVE (NONREACTIVE); HIV INTERPRETATION NEGATIVE (NEGATIVE)
== END 2025-03-05 08:05 | disposition home or self-care (01) ==
LOC: JER 06:31
DX: L40.0 Psoriasis vulgaris (principal); L29.9 Pruritus, unspecified; R21 Rash and other nonspecific skin eruption
CPT/HCPCS: 36415; 86803; 87389; 99283-25